=== PATIENT | male | born 1955 | race Caucasian/White ===

== ENCOUNTER 2019-09-08 09:05 | Emergency (ER) | payer MEDICARE, SELFPAY ==
--- NOTE | 2019-09-08 09:17 | ED_ITS ---
HPI - General Adult General Stated complaint: blood pressure high Time Seen by Provider: 09/08/19 09:17 Source: patient Mode of arrival: ambulatory Limitations: no limitations Related Data Allergies Allergy/AdvReac Type Severity Reaction Status Date / Time codeine Allergy Unknown Verified 12/29/16 10:16 Review of Systems Review of Systems: Narrative: CONSTITUTIONAL: Denies fever, chills, or sweats. EYES: Denies visual changes, redness, or discharge. ENT: Denies rhinorrhea, congestion, sore throat, or otalgia. CARDIOVASCULAR: Denies chest pain, palpitations, or edema. RESPIRATORY: Denies cough or dyspnea. GASTROINTESTINAL: Denies abdominal pain, nausea, vomiting, or diarrhea. GENITOURINARY: Denies dysuria or hematuria. SKIN: Denies rash or itching. MUSCULOSKELETAL: Denies back pain, joint pain, or myalgia. NEUROLOGIC: Denies headache, numbness, or weakness. PSYCHIATRIC: Denies anxiety or depression. [facility] Social History Social History Alcohol intake: current Comments At the time of my signature I agree with nursing past medical history, surgical, social, and family history. There is no relevant family history pertinent to the presenting complaint. Exam Narrative: Exam Narrative: GENERAL: Well-appearing, well-nourished, and in no acute distress. HEAD: Normocephalic, atraumatic. EYES: PERRLA and EOMI. ENT: Nares clear, no rhinorrhea or epistaxis. Mucous membranes moist. NECK: Supple. No lymphadenopathy CHEST: Clear to auscultation. No respiratory distress. HEART: Regular rate and rhythm. No murmur heard. Normal peripheral pulses. ABDOMEN: Soft, nontender, nondistended, normal active bowel sounds. EXTREMITIES: Normal range of motion. No edema. SKIN: Warm, dry, no rash. NEURO: No focal deficits. Alert and oriented x3. Course Vital Signs Vital signs: Vital signs reviewed. Medical Decision Making Differential Diagnosis Differential Diagnosis: Differential diagnosis: Critical Care Time Critical Care Time Critical Care Time: No
[2019-09-08 09:23] VITALS: BP 175/84; PULSE 79; RESP 16; TEMP 37.2; O2SAT 99
== END 2019-09-08 09:30 | disposition left against medical advice (07) ==
PROVIDERS: Emergency Provider Internal Medicine Hematology & Oncology
DX: Z53.21 Procedure and treatment not carried out due to patient leaving prior to being seen by health care provider (principal)
CPT/HCPCS: 99199

== ENCOUNTER → 2021-03-11 03:18 | Outpatient (CLI) | payer MEDICARE, SELFPAY ==
[2021-03-12 22:39] LABS: SARS-CoV-2 RNA PCR Negative
== END ==
PROVIDERS: PCP Physician Assistant; Visit Provider Surgery
DX: Z01.812 Encounter for preprocedural laboratory examination (principal); Z20.822 Contact with and (suspected) exposure to COVID-19
CPT/HCPCS: C9803; U0003; U0005

== ENCOUNTER 2021-03-11 08:41 | Outpatient (CLI) | payer MEDICARE, SELFPAY ==
--- NOTE | 2021-03-11 08:55 | ECG_ITS ---
Measurements Intervals [place] Rate: 67 P: 56 WA: 163 QRS: 48 QRSD: 92 T: 51 QT: 401 QTc: 425 Interpretive Statements SINUS RHYTHM DELAYED PRECORDIAL R/S TRANSITION BASELINE ARTIFACT- I, II, III, AVR, AVL, AVF, V1, V4-V6 BORDERLINE ECG Electronically Signed On 03-11-2021 9:24:48 BURLAPPER by Abisai Jeong D.O.
[2021-03-11 09:51] LABS: Anion Gap 11 mmol/L (8-16); Blood Urea Nitrogen 13 mg/dL (9-20); Calcium 9.7 mg/dL (8.4-10.2); Carbon Dioxide 24 mmol/L (22-30); Chloride 102 mmol/L (98-107); Estimated Glomerular Filt Rate > 60; Glucose 112 mg/dL (65-110); Potassium 3.8 mmol/L (3.4-5.0); Sodium 137 mmol/L (137-145)
== END 2021-03-11 08:42 | disposition home or self-care (01) ==
LOC: ANHSURGERY 08:44
PROVIDERS: Anesthesiology; PCP Physician Assistant; Visit Provider Surgery
DX: Z01.818 Encounter for other preprocedural examination (principal); I10 Essential (primary) hypertension
CPT/HCPCS: 36415; 80048; 93005

== ENCOUNTER 2021-03-14 01:32 | Day surgery (SDC) | payer MEDICARE, SELFPAY ==
[2021-03-10 13:56] VITALS: BMI 29.7
--- NOTE | 2021-03-10 14:02 | PC.NURSE ---
Report to the Outpatient Waiting Room, entrance under the green pavilion located off [facility], at time __0900____ on date __03/14/21 . OR Time: _1100 . - You and your visitor will be asked a series of questions to screen for COVID 19 for your protection. - A mask is required within the hospital. - Only one visitor is allowed at this time. Patient visitors will be guided where to wait when not with patient. Preoperative COVID Testing Requirements: No COVID Test needed if: (proof is required; if not received patient will have Rapid Test prior to entry) - Patient has received COVID Vaccine at least 14 days prior to procedure date or COVID TESTING 03/11/21 AT 0905 - Patient has positive COVID test result within last 90 days of surgery date. COVID Test needed if above criteria is not met If not COVID vaccinated a COVID test must be conducted within 72 hours of surgery and patient is asked to isolate self from time of testing until procedure. You will go to the [employer] [facility] Testing Site for your COVID testing. The [employer] [facility] Testing site is located at the corner of [address] from [facility]. You will only be called if COVID results are positive and your surgeon may reschedule your elective surgery date. Patients may have clear liquids (water, carbonated beverages, clear teas, apple juice) until 3 hours prior to surgery with a maximum of 20 ounces. - No food from midnight until time of surgery - Infants may have breast milk until 4 hours before surgery, infant formula 6 hours prior to surgery. - Children will be allowed to drink immediately following surgery. If applicable, please bring a bottle or sippy cup to assist with drinking. Juice, water, soda, and popsicles are readily available. For infants on formula, please bring formula the day of surgery. Pacifiers are allowed. Take the following medications with a SIP of water the morning of surgery: _NONE Medications to discontinue per physician ALL VITAMINS 3 DAYS PRE OP Date to take last dose__03/10/21 Please no make-up, nail yi, hairspray, perfume, deodorant, or body powder the day of surgery. No jewelry (including any body piercings) or valuables the day of surgery, leave them at home. Please take a shower or bath the night before, or the morning of, surgery with an antibacterial soap. Wear comfortable, loose fitting clothing. Children are encouraged to wear pajamas. - Jewelry must be removed prior to entering the operating room. Rings and piercings that are not removed may be cut off. - The hospital will not accept responsibility for valuables. - Please leave all valuables, including medications, at home the day of surgery. HIBICLENS SHOWER MORNING OF SURGERY If you are going home after surgery, a licensed fuel truck driver must drive you home. - NO public transportation without another adult. - We recommend that an adult stay with you for 24 hours following discharge. - We also recommend that you do not drive, make important decision, drink alcoholic beverages, or take any drugs that were not prescribed by your health care provider for at least 24 hours after your discharge time. For Pediatric surgeries, we recommend two adults accompany the child home (only one inside the building at this time). Follow any additional instructions given to you from your surgeon. Telephone instructions given to _PATIENT and asked if any additional questions and then verbalized understanding. Patient advised to call surgeon office or pre surgery nurse liaison [phone] if any additional questions.
[2021-03-14] VITALS (10 sets, daily range): BP systolic 124–173; BP diastolic 66–92; PULSE 62–90; RESP 14–20; TEMP 36.2–36.4; O2SAT 94–100
--- NOTE | 2021-03-14 07:26 | WPDHPUPDATE1 ---
History and Physical Update Update Date/Time: 03/14/21 07:26 History and Physical has been reviewed, including an updated exam of the patient. There are NO changes in the patient's condition. Risks, benefits, and alternatives have been discussed and questions answered. Patient agrees to proceed with procedure.
[2021-03-14] MEDS: ACETAMINOPHEN 500 MG TABLET 1000 MG PO (08:15)
[2021-03-14] MEDS: LACTATED RINGERS 1,000 ML 30 ML IV CONT ×2 (08:15→09:45)
[2021-03-14] MEDS: KETOROLAC 15 MG/ML VIAL (*BKC) IV PUSH (08:15)
--- NOTE | 2021-03-14 08:28 | WPDANESEPPF ---
Anes - Initial Pre Proc Eval Procedure: Operation Date: 03/14/21 10:00 Proposed Procedures p Open Incarcerated Umbilical Hernia Repair with Mesh - Stacy Borges MD Date/Time: 03/14/21 08:28 Surgeon: Stacy Borges MD Pre Op Diagnosis: incarcerated umbilical hernia Patient Data Age: 65 Gender: M Height: 1.7 m Weight: 86.2 kg Allergies Allergy/AdvReac Type Severity Reaction Status Date / Time codeine Allergy Mild hives, Verified 03/14/21 07:43 itchy amlodipine AdvReac Mild Swelling, Verified 03/14/21 07:43 rash Home Medications Medication Instructions Recorded Confirmed Type cholecalciferol (vitamin D3) 25 25 mcg PO DAILY 10/07/19 03/14/21 History mcg (1,000 unit) capsule hydroxyzine HCl 50 mg tablet 50 mg PO BID PRN #14 tablet 02/04/21 03/14/21 Rx lisinopril 20 2 tablet PO DAILY #180 tablet 03/02/21 03/14/21 Rx mg-hydrochlorothiazide 12.5 mg tablet mupirocin 2 % topical ointment 1 applic TOPICAL TID #22 g 03/02/21 03/14/21 Rx aspirin [Adult Low Dose Aspirin] 81 mg PO PRN PRN 03/10/21 03/14/21 History Patient hx anesthesia problems: none Family hx anesthesia problems: none Results Review: All pre-operative results and documents have been reviewed as part of the pre-operative evaluation. [facility] Past Medical History Medical History Arthritis Hyperlipidemia Hypertension Surgical History Surgical History H/O repair of right rotator cuff Family History Family History Father Cerebrovascular accident Mother Acute myocardial infarction Other Hypertension Social History Social History Smoking packs per day: 1 Smoking cigarettes per day: 20.0 Years smoked: 10 Smoking pack-years: 10.00 Smoking status: Former smoker Tobacco type: cigarettes Second hand tobacco smoke exposure: No Smoking end date: 03/05/98 Alcohol intake: current Drinks per week: 9 Substance use: never Living arrangements: with family Spiritual care concerns: No Anes - Eval Final PreProcedure Day of Procedure 03/14/21 08:28 Patient weight: overweight Heart: regular rate and rhythm Lungs: clear to auscultation Airway: Mallampati scale class III and special considerations poor dentition Neurological: alert and oriented Last oral intake: >/= 8 hours ASA classification: III Emergent: no Anesthetic plan: proceed Anesthesia type and monitoring: general ETT and standard monitoring Results Review: All pre-operative results and documents have been reviewed as part of the pre-operative evaluation. Informed Consent: The patient's anesthetic plan and its attendant risks and benefits were discussed with the patient/family/POA. Questions were solicited and answers provided to the satisfaction of the patient/family/POA.
[2021-03-14] MEDS: ceFAZolin 2 GM/D5W 50 ML 2 GM/50 ML BAG IVPB (08:55)
[2021-03-14] MEDS: BUPIVACAINE/EPINEPHRINE 0.5% 10 ML VIAL 30 ML INFILTRATE (08:55)
--- NOTE | 2021-03-14 09:56 | W.PM.PROC2 ---
Procedure Note - Detailed Date of Procedure 03/14/21 Pre-op Diagnosis incarcerated umbilical hernia Post-op Diagnosis same Procedure Performed repair of incarcerated umbilical hernia with mesh Surgeon Stacy Borges MD Anesthesia general Indications 65 y/o M c incarcerated umbilical hernia Findings incarcerated [facility] c preperitoneal fat and omentum Description of Procedure The patient was taken to the operating room placed in the supine position. After adequate induction of general anesthesia, the patient was prepped and draped in the normal sterile fashion. A time-out was then done to verify the patient's identity, as well as the procedure being performed. I began by localizing the area around the umbilicus. I then made a curvilinear incision in the infraumbilical fold. This was taken down to level fascia. I then was able to bluntly dissect around the umbilicus. I then carefully dissected the umbilicus off the underlying fascia. I then noted a small defect with incarcerated omentum and preperitoneal fat. I was able to mobilize the incarcerated tissue and reduce it back into the abdominal cavity. This left an approximately 2 cm defect. I then placed a 4.3 cm round piece of ventralex mesh in the underlay position. This was noted to have good, wide local coverage of the defect. I then closed this defect primarily with interrupted 0 Ethibond suture over the underlay mesh repair. I then reapproximated the umbilicus to the fascia with a 3 0 Vicryl U-stitch. The subcutaneous tissue was then closed with 3 0 Vicryl suture. The skin was closed with 4 0 Monocryl subcuticular suture. Dermabond was then placed on the wound. The patient tolerated the procedure well was extubated in the operating room postop. He will be transferred to the recovery room in stable condition. Implants 4.3 cm ventralex mesh in underlay position Estimated Blood Loss 5 Drains No Packing No Pathology none sent Complications No immediate complications Condition stable Disposition PACU
== END 2021-03-14 12:05 | disposition home or self-care (01) ==
PROVIDERS: PCP Physician Assistant; Visit Provider Surgery
PROC: (CPT 49587; principal; 2021-03-14 10:00)
DX: K42.0 Umbilical hernia with obstruction, without gangrene (principal); R10.9 Unspecified abdominal pain; M19.90 Unspecified osteoarthritis, unspecified site; I10 Essential (primary) hypertension; E78.5 Hyperlipidemia, unspecified; Z79.82 Long term (current) use of aspirin; Z87.891 Personal history of nicotine dependence
CPT/HCPCS: 49587; 36415; 80048; 93005; A9270; C9803; J0690; J1885; J1940; J2250; J2270; J2405; J2704; J7120; U0003; U0005

== ENCOUNTER 2021-06-27 13:41 | Outpatient (CLI) | payer MEDICARE, SELFPAY ==
--- NOTE | ~2021-06-27 | US_ITS ---
EXAMINATION: US art doppler w press LE BI DATE: 06/27/2021 14:40 INDICATION: Discoloration at the bilateral shins. TECHNIQUE: Segmental pressures and plethysmographic and Doppler waveforms of the brachial and lower e xtremity arteries were obtained. COMPARISON: None. FINDINGS: Right and left brachial artery pressures of 143 mm Hg and 147 mm Hg, respectively, are concordant (no rmal difference <= 30 mmHg). The right and left high-thigh pressure indices are 1.30 and 1.14, respec tively (normal > 1.2). The right ankle-brachial index (SHELBIE) is 0.98 (normal >= 0.9-1). The right great toe-brachial index (T BI) is 0.63 (normal >= 0.6-0.8). The right lower extremity segmental pressure gradients are increased between the right [id number] popliteal artery and both the right posterior tibial and more promi nently with respect to the right dorsalis pedis artery (normal gradients <= 20-30 mmHg between adjace nt levels on the same leg or the same levels on the two legs). Arterial waveforms are biphasic with b risk systolic upstrokes throughout the arteries of the right lower limb. The left SHELBIE is 1.12. The left TBI is 0.59. The left lower extremity segmental pressure gradients are increased between the left dorsalis pedis artery and the left eqyqx-flp-[id number] popliteal artery. Arter ial waveforms are biphasic with brisk systolic upstrokes throughout the arteries of the left lower li mb. IMPRESSION: 1. 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 Borderline right TBI Reviewed, dictated and finalized at location B.
== END 2021-06-27 13:42 | disposition home or self-care (01) ==
PROVIDERS: PCP Physician Assistant; Visit Provider Physician Assistant
DX: R21 Rash and other nonspecific skin eruption (principal); I73.9 Peripheral vascular disease, unspecified
CPT/HCPCS: 93923

== ENCOUNTER → 2022-03-30 07:49 | Outpatient (CLI) | payer MEDICARE, SELFPAY ==
--- NOTE | ~2022-03-30 | MR_ITS ---
MRI of the right knee Clinical history: Injury Technique: Coronal proton density and proton density-weighted images, sagittal proton-density and T2 fat-sat images, and axial proton-density fat-saturated images were acquired. Findings: Anterior and posterior cruciate ligaments are intact. Medial collateral ligament and the la teral collateral ligament complex are intact. Popliteus tendon is intact. Subtle horizontal tear of the posterior horn the medial meniscus present. Lateral meniscus is intact. Articular cartilage in the medial lateral compartments, and along the femoral trochlea is preserved. 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 Extensor mechanism is intact. No joint effusion or Edward's cyst. Impression: Subtle horizontal tear of the posterior horn of the medial meniscus. 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 Reviewed, dictated and finalized at [facility]. LESOFT ANALYST Impression: Subtle horizontal tear of the posterior horn of the medial meniscus. 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
== END ==
PROVIDERS: PCP Physician Assistant; Visit Provider Orthopaedic Surgery
DX: S83.241A Other tear of medial meniscus, current injury, right knee, initial encounter (principal); M22.41 Chondromalacia patellae, right knee; X58.XXXA Exposure to other specified factors, initial encounter
CPT/HCPCS: 73721

== ENCOUNTER 2022-04-12 14:12 | Outpatient (CLI) | payer MEDICARE, SELFPAY ==
--- NOTE | ~2022-04-12 | XR_ITS ---
Clinical Indication: Cough PA and lateral views of the chest: Comparison: 10/27/2008 Findings: The lungs are clear, without evidence of focal consolidation or pleural effusion. Cardiome diastinal silhouette is within normal limits. Bones and soft tissues are unremarkable. Impression: Normal chest. Reviewed, dictated and finalized at [facility]. URE PAINTER Impression: Normal chest.
== END 2022-04-12 14:13 | disposition home or self-care (01) ==
PROVIDERS: PCP Physician Assistant; Visit Provider Physician Assistant
DX: R05.9 Cough, unspecified (principal)
CPT/HCPCS: 71046

== ENCOUNTER 2022-04-28 08:13 | Outpatient (CLI) | payer MEDICARE, SELFPAY ==
[2022-04-28 09:01] LABS: Anion Gap 5 mmol/L (8-16); Blood Urea Nitrogen 12 mg/dL (9-20); Calcium 9.4 mg/dL (8.4-10.2); Carbon Dioxide 30 mmol/L (22-30); Chloride 99 mmol/L (98-107); Estimated Glomerular Filt Rate > 60; Glucose 120 mg/dL (65-110); Potassium 3.8 mmol/L (3.4-5.0); Sodium 134 mmol/L (137-145)
== END 2022-04-28 08:14 | disposition home or self-care (01) ==
LOC: ANHSURGERY 08:17
PROVIDERS: Anesthesiology; PCP Physician Assistant; Visit Provider Orthopaedic Surgery
DX: Z51.81 Encounter for therapeutic drug level monitoring (principal); Z01.818 Encounter for other preprocedural examination
CPT/HCPCS: 36415; 80048

== ENCOUNTER 2022-05-05 01:24 | Day surgery (SDC) | payer MEDICARE, SELFPAY ==
[2022-04-25 14:08] VITALS: BMI 31.1
--- NOTE | 2022-04-25 14:48 | PC.NURSE ---
Report to the Outpatient Waiting Room, entrance under the green pavilion located off [facility], at time __8:30AM on date _05/05/22 . Planned Procedure Time: __10:30AM . Time changes happen often and if your time is changed the preop area will call you the afternoon before. - You and your visitor will be asked to self-screen and do not enter if you have any COVID symptoms. - Only one visitor is requested with a max of two and NO children visitors are allowed at this time. - The patient visitor may be requested to leave or wait in car when not with patient due to distancing restrictions. - A mask is optional within the hospital at this time. Patients may have clear liquids (water, carbonated beverages, clear teas, apple juice) until 3 hours prior to surgery with a maximum of 20 ounces. - No food from midnight until time of surgery Take the following medications with a SIP of water the morning of surgery: __ADVAIR DISKUS, ALBUTEROL INHALER NEEDED DO NOT STOP ANY OF YOUR OTHER PRESCRIPTION MEDICATIONS PRIOR TO SURGERY ?EXCEPT THE FOLLOWING Medications to discontinue per physician ___HOLD ASPIRIN PER DR SMITH(PT TO CALL OFFICE TO VERIFY) Please no make-up, nail sami, hairspray, perfume, deodorant, or body powder the day of surgery. No jewelry (including any body piercings) or valuables the day of surgery, leave them at home. Please take a shower or bath the night before, or the morning of, surgery with an antibacterial soap. Wear comfortable, loose fitting clothing. Children are encouraged to wear pajamas. - Jewelry must be removed prior to entering the operating room. Rings and piercings that are not removed may be cut off. - The hospital will not accept responsibility for valuables. - Please leave all valuables, including medications, at home the day of surgery. If you are going home after surgery, a licensed crew car driver must drive you home. - NO public transportation without another adult if you receive anesthesia. - We recommend that an adult stay with you for 24 hours following discharge. - We also recommend that you do not drive, make important decision, drink alcoholic beverages, or take any drugs that were not prescribed by your health care provider for at least 24 hours after your discharge time. Follow any additional instructions given to you from your surgeon. If you or anyone in your household have experienced Covid symptoms in the past week, please notify your surgeon or the nurse liaison at the phone number below for possible testing. Telephone instructions given to __PATIENT and asked if any additional questions and then verbalized understanding. Patient advised to call surgeon office or pre surgery nurse liaison [phone] if any additional questions.
[2022-05-05] VITALS (8 sets, daily range): BP systolic 130–162; BP diastolic 87–100; PULSE 65–72; RESP 14–18; TEMP 36.1–36.3; O2SAT 95–100
--- NOTE | 2022-05-05 07:19 | WPDHPUPDATE1 ---
History and Physical Update Update Date/Time: 05/05/22 07:19 History and Physical has been reviewed, including an updated exam of the patient. There are NO changes in the patient's condition. Risks, benefits, and alternatives have been discussed and questions answered. Patient agrees to proceed with procedure.
[2022-05-05] MEDS: CELECOXIB 200 MG CAPSULE PO (08:56)
[2022-05-05] MEDS: ACETAMINOPHEN 500 MG TABLET 1000 MG PO (08:56)
[2022-05-05] MEDS: LACTATED RINGERS 1,000 ML 30 ML IV CONT ×2 (09:30→11:42)
--- NOTE | 2022-05-05 10:01 | W.PM.PROC2 ---
Procedure Note - Detailed Date of Procedure 05/05/22 Pre-op Diagnosis Rt Knee Medial Meniscus Tear, RETAINED SUTURE RIGHT SHOULDER Post-op Diagnosis Same Procedure Performed RIGHT KNEE SCOPE, REMOVAL OF FOREIGN BODY RIGHT SHOULDER Surgeon Kai Patel MD Anesthesia General Description of Procedure PATIENT WAS TAKEN TO THE OR. RIGHT LEG WAS PREPPED AND DRAPED STERILE. TROCARS WERE PLACED IN THE USUAL FASHION. CAMERA WAS INTRODUCED. THERE WAS CHONDROMALACIA TO THE PATELLA FEMORAL JOINT. THERE WAS A LOT OF SYNOVITIS IN ALL COMPARTMENTS. THE MEDIAL COMPARTMENT SHOWED CHONDROMALACIA TO THE MEDIAL FEMORAL CONDYLE. A SHAVER WAS USED TO PREFORM A CHONDROPLASTY. THERE WAS A COMPLEX MEDIAL MENISCUS TEAR. THE TEAR WAS RESECTED WITH A BITER AND A SHAVER DOWN TO A SMOOTH BASE. ABOUT 30% OF THE MENISCUS TEAR WAS REMOVED. THE ACL WAS INTACT. THE LATERAL MENISCUS WAS NOT TORN. THE LATERAL COMPARTMENT HAD GRADE 2 CHONDROMALACIA AT THE LATERAL PLATEAU. CHONDROPLASTY WAS PREFORMED. A SYNOVECTOMY WAS PREFORMED WELL. THE PATELLO FEMORAL JOINT UNDERWENT CHONDROPLASTY. THERE WAS GRADE 2 CHONDROMALACIA IN MOST OF THE TROCHLEA AND PART OF THE PATELLA. SYNOVECTOMY WAS PREFORMED IN THE SUPERIOR MEDIAL COMPARTMENT. THE WOUNDS WERE APPROXIMATED WITH 4.0 NYLON. STERILE DRESSING WAS APPLIED. NEXT AFTER RE GOWNING AND GLOVING, THE RIGHT SHOULDER WAS PREPPED AND DRAPED AND THE RETAINED SUTURE WAS PALPATED AND AN INCISION WAS MADE DIRECTLY OVER THE SUTURE OVER THE OLD SCAR. DISSECTION CONTINUED UNTIL THE SUTURE WAS IDENTIFIED. IT WAS REMOVED IN ITS ENTIRETY. THE WOUND WAS WASHED AND APPROXIMATED WITH 4-0 NYLON SUTURE. PATIENT WAS EXTUBATED. Estimated Blood Loss 5 Complications No immediate complications Condition Stable Disposition PACU
--- NOTE | 2022-05-05 10:11 | WPDANESEPPF ---
Anes - Initial Pre Proc Eval Procedure: Operation Date: 05/05/22 10:30 Proposed Procedures p Right Knee Arthroscopy, - Kai Patel MD s Removal Foreign Body Right Shoulder - Kai Patel MD Date/Time: 05/05/22 10:11 Surgeon: Kai Patel MD Pre Op Diagnosis: Rt Knee Medial Meniscus Tear, (2 cont) Patient Data Age: 66 Gender: M Height: 1.7 m Weight: 90.3 kg Last Vital Signs Temp 36.3 C L 05/05/22 09:29 Pulse 72 05/05/22 09:29 Resp 16 05/05/22 09:29 BP 158/93 H 05/05/22 09:29 Pulse Ox 99 05/05/22 09:29 O2 Del Method Room Air 05/05/22 09:29 Allergies Allergy/AdvReac Type Severity Reaction Status Date / Time amlodipine Allergy Mild Swelling, Verified 05/05/22 08:40 rash codeine Allergy Mild hives, Verified 05/05/22 08:40 itchy Home Medications Medication Instructions Recorded Confirmed Type aspirin 81 mg tablet 81 mg PO DAILY 03/10/21 05/05/22 History acetaminophen 500 mg tablet 500 mg PO Q6H PRN Pain 03/15/21 05/05/22 History (Tylenol Extra Strength) albuterol sulfate 90 mcg/actuation 2 puff inhalation Q4-6H PRN 10/11/21 05/04/22 Rx aerosol inhaler shortness of breath or wheezing #25.5 grams tamsulosin 0.4 mg capsule 0.4 mg PO DAILY #90 caps 03/14/22 05/05/22 Rx fluticasone 100 mcg-salmeterol 50 1 inh inhalation Q12H #60 ea 04/12/22 05/05/22 Rx mcg/dose blistr powdr for inhalation (Advair Diskus) betamethasone dipropionate 0.05 % 1 applic topical BID 04/25/22 05/04/22 History topical ointment docusate sodium 100 mg capsule 100 mg PO DAILY PRN Constipation 04/25/22 05/05/22 History lisinopril 20 2 tablet PO QAM 04/25/22 05/05/22 History mg-hydrochlorothiazide 12.5 mg tablet pimecrolimus 1 % topical cream 1 applic topical BID 04/25/22 05/04/22 History potassium 99 mg tablet 99 mg PO EVERY OTHER DAY 04/25/22 05/05/22 History chlorhexidine gluconate 4 % 1 applic topical ONCE #237 mL 04/27/22 05/05/22 Rx topical liquid (Hibiclens) hydrocodone 5 mg-acetaminophen 325 1 tablet PO Q12H PRN pain #20 tabs 05/05/22 Rx mg tablet Patient hx anesthesia problems: none Family hx anesthesia problems: none Results Review: All pre-operative results and documents have been reviewed as part of the pre-operative evaluation. [facility] Past Medical History Medical History Arthritis Hyperlipidemia Hypertension Right knee injury Surgical History Surgical History H/O repair of right rotator cuff History of umbilical hernia repair open incarcerated umbilical hernia repair w/ mesh 03/14/21 Family History Family History Father Cerebrovascular accident Mother Acute myocardial infarction Other Hypertension Social History Social History Smoking packs per day: 1 Smoking cigarettes per day: 20.0 Years smoked: 20 Smoking pack-years: 20.00 Smoking status: Former smoker Tobacco type: cigarettes Second hand tobacco smoke exposure: No Smoking end date: 09/03/99 Alcohol intake: current Drinks per week: 10 Substance use: never Lack of Transportation: No Lack of Food: Never True Current Housing: I Have Housing Concerned About Future Housing: No Difficulty Paying Gas/Electric Bills: No Difficulty Paying for Meds: No Currently Unemployed: No Education: High School Diploma/GED Difficulty w/ Childcare or Family Care: No Living arrangements: with family Additional living arrangements comments: Spiritual care concerns: No Anes - Eval Final PreProcedure Day of Procedure 05/05/22 10:11 Patient weight: obese Heart: regular rate and rhythm Lungs: decreased breath sounds Airway: Mallampati scale class II Neurological: alert and oriented
[2022-05-05] MEDS: ceFAZolin 2 GM/D5W 50 ML 2 GM/50 ML BAG IVPB (10:19)
[2022-05-05] MEDS: BUPivacaine HCL 0.5% PF 30 ML VIAL INFILTRATE (11:12)
[2022-05-05] MEDS: oxyCODONE HCL (*CRX) 5 MG TAB IR PO (13:11)
== END 2022-05-05 14:03 | disposition home or self-care (01) ==
PROVIDERS: PCP Physician Assistant; Visit Provider Orthopaedic Surgery
PROC: (CPT 29870; principal; 2022-05-05 10:30)
PROC: (CPT 29881; 2022-05-05 10:30)
DX: S83.231A Complex tear of medial meniscus, current injury, right knee, initial encounter (principal); X50.0XXA Overexertion from strenuous movement or load, initial encounter; M79.5 Residual foreign body in soft tissue; I10 Essential (primary) hypertension; E78.5 Hyperlipidemia, unspecified; Z87.891 Personal history of nicotine dependence; E66.9 Obesity, unspecified; Z68.31 Body mass index [BMI] 31.0-31.9, adult; Z79.82 Long term (current) use of aspirin; Z79.51 Long term (current) use of inhaled steroids
CPT/HCPCS: 29881; 23333; 36415; 80048; A9270; J0690; J1100; J2250; J2370; J2704; J3010; J7120

== ENCOUNTER 2023-11-23 08:14 | Emergency (ER) | payer MEDICARE, SELFPAY ==
--- NOTE | 2023-11-23 08:19 | ED.MALEGU ---
HPI - Male Genitourinary General Chief complaint: Urogenital-Male Stated complaint: UTI Time Seen by Provider: 11/23/23 08:19 Source: patient Mode of arrival: ambulatory Limitations: no limitations History of Present Illness HPI Narrative: 68 yo M presents with c/o pain to L side of low back. Was sitting on bench playing guitar, leaned back and didn't realize no back to the bench and fell backwards. Pt states was not a hard fall. kind of rolled back . Denies hitting head. Pt wants urine checked. had low back pain in the past that was UTI . no other urinary symptoms. all systems reviewed and negative except as noted above. Related Data Home Medications Medication Instructions Recorded Confirmed aspirin 81 mg tablet 81 mg PO DAILY 03/10/21 11/23/23 acetaminophen 500 mg tablet 500 mg PO Q6H PRN Pain 03/15/21 11/23/23 (Tylenol Extra Strength) betamethasone dipropionate 0.05 % 1 applic topical BID 04/25/22 11/23/23 topical ointment docusate sodium 100 mg capsule 100 mg PO DAILY PRN Constipation 04/25/22 11/23/23 pimecrolimus 1 % topical cream 1 applic topical BID 04/25/22 11/23/23 potassium 99 mg tablet 99 mg PO EVERY OTHER DAY 04/25/22 11/23/23 Allergies Allergy/AdvReac Type Severity Reaction Status Date / Time amlodipine Allergy Mild Swelling, Verified 11/23/23 08:43 rash codeine Allergy Mild hives, Verified 11/23/23 08:43 itchy Review of Systems Review of Systems: CONSTITUTIONAL: Denies fever, chills, or sweats. EYES: Denies visual changes, redness, or discharge. ENT: Denies rhinorrhea, congestion, sore throat, or otalgia. CARDIOVASCULAR: Denies chest pain, palpitations, or edema. RESPIRATORY: Denies cough or dyspnea. GASTROINTESTINAL: Denies abdominal pain, nausea, vomiting, or diarrhea. GENITOURINARY: Denies dysuria or hematuria. SKIN: Denies rash or itching. MUSCULOSKELETAL: Reports left lower back pain. NEUROLOGIC: Denies headache, numbness, or weakness. PSYCHIATRIC: Denies anxiety or depression. All other systems reviewed are negative, except as documented in HPI. [facility] Past Medical History Medical History Arthritis Hyperlipidemia Hypertension Right knee injury Surgical History Surgical History H/O repair of right rotator cuff History of umbilical hernia repair open incarcerated umbilical hernia repair w/ mesh 03/14/21 Family History Family History Father Cerebrovascular accident Mother Acute myocardial infarction Other Hypertension Social History Social History Smoking packs per day: 1 Smoking cigarettes per day: 20.0 Years smoked: 20 Smoking pack-years: 20.00 Smoking status: Former smoker Tobacco type: cigarettes Second hand tobacco smoke exposure: No Smoking end date: 09/03/99 Alcohol intake: current Drinks per week: 10 Substance use: never Lack of Transportation: No Lack of Food: Never True Current Housing: I Have Housing Concerned About Future Housing: No Difficulty Paying Gas/Electric Bills: No Difficulty Paying for Meds: No Currently Unemployed: No Education: High School Diploma/GED Difficulty w/ Childcare or Family Care: No Living arrangements: with family Additional living arrangements comments: Gender identity (if verbalized by the patient): Male Sexual Orientation (if Verbalized by the Patient): Straight or Heterosexual Spiritual care concerns: No Comments At time of signature, agree with nursing past medical, surgical, social and family history. There is no relevant family history pertinent to the presenting complaint. Exam Narrative: GENERAL: This is a well-nourished, well-developed patient, in no apparent distress. HEAD: normocephalic, atrauma
[2023-11-23 08:25] VITALS: BP 124/98; PULSE 81; RESP 14; TEMP 36.5; O2SAT 99
[2023-11-23 08:41] LABS: EDUAAPPEAR Clear; EDUABILI 1+ (Negative); EDUABLOOD Negative (Negative); EDUACOLOR1 Amber; EDUAGLUCOSE Negative (Negative); EDUAKETONE 1+ (Negative); EDUALEUKO Negative (Negative); EDUANITRATE Negative (Negative); EDUAPH 5.5; EDUAPROTEIN Trace (Negative); EDUAUROBILI 0.2
== END 2023-11-23 08:47 | disposition home or self-care (01) ==
PROVIDERS: Emergency Provider Nurse Practitioner Family; PCP Physician Assistant
DX: S39.012A Strain of muscle, fascia and tendon of lower back, initial encounter (principal); W17.89XA Other fall from one level to another, initial encounter; M19.90 Unspecified osteoarthritis, unspecified site; E78.5 Hyperlipidemia, unspecified; I10 Essential (primary) hypertension; Z87.891 Personal history of nicotine dependence
CPT/HCPCS: 81003; 99212; G0463

== ENCOUNTER 2024-01-09 08:57 | Outpatient (CLI) | payer MEDICARE, SELFPAY ==
--- NOTE | ~2024-01-09 | US_ITS ---
EXAMINATION: US arterial ankle brachial ind DATE: 01/09/2024 10:15 INDICATION: Claudication. Other specified symptoms and signs involving the circulatory system. TECHNIQUE: Segmental pressures and plethysmographic and Doppler waveforms of the brachial and lower e xtremity arteries were obtained. COMPARISON: Arterial Doppler and segmental pressures 06/27/2021 FINDINGS: Right and left brachial artery pressures of 142 mm Hg and 147 mm Hg, respectively, are concordant (no rmal difference <= 30 mmHg). The right ankle-brachial index (SHELBIE) is 1.05 (normal >= 0.9-1.0). The right great toe-brachial index (TBI) is 0.78 (normal >= 0.65). Arterial Doppler waveforms are biphasic at the ankle. The left SHELBIE is 1.01. The left TBI is 0.69. Arterial Doppler waveforms are biphasic at the ankle. IMPRESSION: 1. No significant arterial occlusive disease. Reviewed, dictated and finalized at location A. NT SERVER DEVELOPER
== END 2024-01-09 08:58 | disposition home or self-care (01) ==
PROVIDERS: PCP Nurse Practitioner; Visit Provider Nurse Practitioner
DX: R09.89 Other specified symptoms and signs involving the circulatory and respiratory systems (principal); M79.671 Pain in right foot; M79.672 Pain in left foot
CPT/HCPCS: 93922

== ENCOUNTER 2024-05-08 09:55 | Outpatient (CLI) | payer MEDICARE, SELFPAY ==
--- NOTE | ~2024-05-08 | CT_ITS ---
EXAMINATION: CT chest abdomen pelvis w con DATE: 05/08/2024 10:29 INDICATION: Abnormal weight loss TECHNIQUE: Computed tomography (CT) of the chest, abdomen, and pelvis was performed with 100 mL Omnip aque-350 intravenous contrast. Automated exposure control and iterative reconstruction technique were employed. The dose-length product was 398.93 mGy-cm. COMPARISON: None FINDINGS: CHEST CT: Calcified right lower lobe nodule consistent with old granulomatous disease. There is a 3 mm likely p asif fissural lymph node along the right major fissure. No other suspicious pulmonary nodules, pneumon ia, pulmonary edema or pleural effusion. Heart size normal. Atherosclerotic coronary artery calcifica tion. No pericardial effusion. Thoracic aorta is normal in caliber with no dissection. No pathologica lly enlarged thoracic lymphadenopathy. Moderate thoracic spondylosis with chronic mild anterior wedgi ng of a few mid thoracic vertebral bodies. ABDOMEN/PELVIS CT: Liver, gallbladder, spleen, pancreas, bilateral adrenal glands and right kidney are normal. 1.6 cm le ft renal cyst. Bowels including the appendix are normal. There is diffuse wall thickening of the blad khai to be some particulate decompressed state although could also be due to chronic outlet obstructio n from the enlarged prostate which measures 5.5 x 4.4 cm. Moderate-sized bilateral fat-containing ing uinal hernias. No free intraperitoneal gas or fluid. No pathologically enlarged abdominal or pelvic l ymphadenopathy. Very small fat-containing umbilical hernia with suggestion of underlying hernia repai r. Severe disc height loss at L5-S1. Otherwise mild lumbar spondylosis. IMPRESSION: 1. Diffuse wall thickening of the bladder which could be due to chronic obstruction from the enlarged prostate. 2. No other lesion suspicious for primary malignancy or metastatic disease in the chest, abdomen or p elizabeth. Reviewed, dictated and finalized at location L. SMISSION MAINTENANCE SUPERVISOR IMPRESSION: 1. Diffuse wall thickening of the bladder which could be due to chronic obstruc tion from the enlarged prostate. 2. No other lesion suspicious for primary malignancy or metastatic disease in t he chest, abdomen or pelvis.
[2024-05-08 10:32] LABS: Estimated Glomerular Filt Rate > 60
--- OUTSIDE RECORDS SUMMARY | 2024-05-08 11:11 | XMS_ITS | Clinical Summary ---
Author Organization [facility] Address [address] [place] [address] Care Team Providers Care Integration Analyst Name Role Phone Juvencio Mccormick MD Unavailable [phone] Allergies Active Allergy Reactions Criticality Noted Date Comments Morphine And Codeine Rash Low 04/24/2012 Medications lisinopril 20 MG tabletIndications:H TN (hypertension) Take 2 tablets (40 mg total) by mouth daily. Patient must be seen for further refills 60 tablet 0 Active atorvastatin 10 MG tabletIndications:M ixed hyperlipidemia Take 1 tablet (10 mg total) by mouth nightly at bedtime. Patient must be seen for further refills 30 tablet 0 Active amLODIPine 5 MG tabletIndications:E ssential hypertension Take 1 tablet (5 mg total) by mouth daily. Patient must be seen for further refills 90 tablet 0 Active Active Problems Problem Noted Date Diagnosed Date Mixed hyperlipidemia 07/19/2018 Left hip pain 06/11/2017 Right shoulder pain 12/12/2016 Low vitamin D level 03/15/2016 Rosacea 08/06/2014 Erectile dysfunction of nonorganic origin 2012 Hypertension 04/24/2012 Rheumatoid arthritis ([facility]) 3 Chest pain in adult Fatigue Resolved Problems Problem Noted Date Diagnosed Date Resolved Date Screening for colon cancer 06/11/2017 0 11/14/2019 Encounter for vitamin deficiency screening 03/08/2016 07/08/2018 Encounter for prostate cancer screening 08/06/2014 07/08/2018 Encounter for preventive health examination 04/23/2012 07/08/2018 Family History Medical History Relation Comments Hypertension Father Stroke Father Relation Status Comments Father Social History Tobacco Use Types Packs/Day Years Used Date Smoking Tobacco: Former Cigarettes Smokeless Tobacco: Never Alcohol Use Standard Drinks/Week Comments Yes 0 (1 standard drink = 0.6 oz pur e alcohol) Sex and Gender Information Value Date Recorded Sex Assigned at Not on file Legal Sex Male 7:30 PM CDT Gender Identity Not on file Sexual Orientation Not on file Last Filed Vital Signs Vital Sign Reading Time Taken Comments Blood Pressure 138/70 08/06/2018 2:22 PM CDT Pulse 65 08/06/2018 2:22 PM CDT Temperature 35.8 C (96.4 F) 08/06/2018 2:22 PM CDT Respiratory Rate 16 08/06/2018 2:22 PM CDT Oxygen Saturation 100% 08/06/2018 2:22 PM CDT Inhaled Oxygen Concentration - - Weight 78.9 kg (174 lb) 08/06/2018 2:22 PM CDT Height 170.2 cm (5' 7 ) 08/06/2018 2:22 PM CDT Body Mass Index 27.25 08/06/2018 2:22 PM CDT Plan of Treatment Health Maintenance Due Date Last Done Comments Colorectal Cancer Screening Colonoscopy (10 Years) 1955 Hepatitis C 06/29/1973 DTaP, Tdap and Td Vaccines ( 1 - Tdap) 06/29/1974 Zoster Vaccines (1 of 2) 06/29/2005 Pneumococcal Vaccine: 65+ Ye ars (1 of 1 - PCV) 06/29/2020 COVID-19 Vaccine (1 - 2023-2 5 season) 2023 Influenza Adult (#1) 2023 RSV Immunization or 60+ Years (1 - 1-dose 75+ series) 06/29/2030 Meningococcal B Vaccine Aged Out No l onger eligible based on patient's age to complete this topic Meningococcal Vaccine Aged Out No tom inocencia eligible based on patient's age to complete this topic RSV Immunizations Under 20 Months Aged Out No longer eligible based on patient's age to complete this topic Care Teams Integration Analyst Relationship Specialty Start Date End Date Juvencio Mccormick MD [address] [address] Ángel Senior User Experience Architect CARDIOVASCULAR DISEASE 08/26/18
== END 2024-05-08 09:56 | disposition home or self-care (01) ==
PROVIDERS: PCP Nurse Practitioner; Visit Provider Nurse Practitioner
DX: R63.4 Abnormal weight loss (principal); Z68.24 Body mass index [BMI] 24.0-24.9, adult
CPT/HCPCS: 71260; 74177; Q9967

== ENCOUNTER 2024-05-13 12:18 | Emergency (ER) | payer MEDICARE, SELFPAY ==
[2024-05-13 12:33] VITALS: BP 118/81; PULSE 109; RESP 16; TEMP 36.6; O2SAT 98
--- NOTE | 2024-05-13 12:53 | ED.WEAKNESS ---
HPI - Weakness General Chief complaint: Weakness Stated complaint: no energy, abd pain left Time Seen by Provider: 05/13/24 12:53 Focused HPI: This is a 68 year old male that presents to the ER for abdominal pain ongoing over the last couple of years. Reports generalized weakness. Reports he has been evaluated for this without certain cause found. Reports he feels like he has gas build up. Reports weight loss. He has also had a colonoscopy without concerning findings. Reports subjective fevers. Denies vomiting, diarrhea. GENERAL: Well-appearing, well-nourished, and in no acute distress. HEAD: Normocephalic, atraumatic. CHEST: Clear to auscultation. ?No respiratory distress. HEART: Regular rate and rhythm.? NEURO: ?Alert and oriented x3. Patient screened in triage and initial orders placed.? ?Additional care and disposition to be based upon?diagnostic testing and treatment. Related Data Home Medications ?Medication ?Instructions ?Recorded ?Confirmed ?Last Taken ?Type aspirin 81 mg tablet 81 mg PO DAILY 03/10/21 04/11/24 05/02/22 History acetaminophen 500 mg tablet 500 mg PO Q6H PRN Pain 03/15/21 04/11/24 Unknown History (Tylenol Extra Strength) potassium 99 mg tablet 99 mg PO EVERY OTHER DAY 04/25/22 04/11/24 04/27/22 History Allergies Allergy/AdvReac Type Severity Reaction Status Date / Time amlodipine Allergy Mild Swelling, Verified 04/11/24 07:12 rash codeine Allergy Mild hives, Verified 04/11/24 07:12 itchy PMFSH Past Medical History Medical History (Updated 04/28/24 @ 15:30 by Lazarus Dewey APRN) BMI 24.0-24.9, adult Complete tear of right rotator cuff Aftercare following surgery of the musculoskeletal system Acute pain of right shoulder Right knee injury Hyperlipidemia Hypertension Arthritis Surgical History Surgical History History of umbilical hernia repair open incarcerated umbilical hernia repair w/ mesh 03/14/21 H/O repair of right rotator cuff Family History Family History Father Cerebrovascular accident Mother Acute myocardial infarction Other Hypertension Social History Social History (Updated 04/11/24 @ 07:38 by Ana Lilia Coffey Anirudh) Smoking packs per day: 1 Smoking cigarettes per day: 20.0 Years smoked: 20 Smoking pack-years: 20.00 Smoking status: Former smoker Tobacco type: cigarettes Second hand tobacco smoke exposure: No Smoking end date: 09/03/99 Alcohol intake: current Drinks per week: 10 Substance use: never Substance use type: does not use Do You Feel Safe in your Home?: Yes Lack of Transportation: No Lack of Food: Never True Current Housing: I Have Housing Concerned About Future Housing: No Difficulty Paying Gas/Electric Bills: No Difficulty Paying for Meds: No Currently Unemployed: No Education: High School Diploma/GED Difficulty w/ Childcare or Family Care: No Living arrangements: with family Additional living arrangements comments: Occupation/Education: unemployed 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[employer] Gender identity (if verbalized by the patient): Male Sexual Orientation (if Verbalized by the Patient): Straight or Heterosexual Spiritual care concerns: No Course Vital Signs Vital signs: Vital Signs Temperature 97.8 F 05/13/24 12:33 Pulse Rate 109 H 05/13/24 12:33 Respiratory Rate 16 05/13/24 12:33 Blood Pressure 118/81 05/13/24 12:33 Pulse Oximetry 98 05/13/24 12:33 Oxygen Delivery Room Air 05/13/24 12:33 Temperature 97.8 F 05/13/24 12:33 Pulse Rate 109 H 05/13/24 12:33 Respiratory Rate 16 05/13/24 12:33 Blood Pressure 118/81 05/13/24 12:33 Pulse Oximetry 98 05/13/24 12:33 Oxygen Delivery Room Air 05/13/24 12:33 Discharge Plan Discharge Patient Language: German Prescriptions: No Action acetaminophen [Tylenol Extra Strength] 500 mg tablet 500 mg PO Q6H PRN (Reason: Pain) tamsulosin 0.4 mg capsule 0.4 mg PO DAILY Qty: 90 3RF omeprazole 40 mg capsule,delayed release(DR/EC) 40 mg PO DAILY Qty: 90 1RF aspirin 81 mg Tablet 81 mg PO DAILY potassium 99 mg Tablet 99 mg PO EVERY OTHER DAY fluticasone propion-salmeterol [Advair Diskus] 100-50 mcg/dose blister with device 1 inh inhalation Q12H Qty: 60 5RF albuterol sulfate 90 mcg/actuation HFA aerosol inhaler 2 puff inhalation Q4-6H PRN (Reason: shortness of breath or wheezing) Qty: 25.5 2RF lisinopril-hydrochlorothiazide 20-12.5 mg tablet 2 tablet PO QAM Qty: 90 1RF Follow-up/Referrals: Lazarus Dewey APRN [Primary Care Provider] -
[2024-05-13] MEDS: ONDANSETRON INJ 4 MG/2 ML VIAL IV PUSH (13:30)
[2024-05-13 13:37] LABS: Basophils Percent Auto 0.4 % (0.2-1.2); Eosinophils Percent Auto 0.9 % (0-4.4); Hemoglobin 15.3 g/dL (14.0-18.0); Immature Granulocyte Absolute 0.01 K/mm3 (0.00-0.031); Immature Granulocyte Percent A 0.2 % (0-0.5); Lymphocytes Absolute Auto 0.67 K/mm3 (0.9-3.2); Lymphocytes Percent Auto 14.4 % (18.3-44.2); Mean Corpuscular HGB Conc 35.6 g/dl (32-36); Mean Corpuscular Hemoglobin 31.5 pg (26-34); Mean Corpuscular Volume 88.7 fl (80-100); Mean Platelet Volume 9.2 fl (7.4-10.4); Monocytes Absolute Auto 0.8 K/mm3 (0.1-0.6); Monocytes Percent Auto 16.1 % (2.6-8.5); Neutrophils Absolute Auto 3.2 K/mm3 (1.3-6.7); Platelet Count Result 163 k/mm3 (150-375); Red Blood Count 4.85 M/mm3 (4.6-6.20); Red Cell Distribution Width 13.2 % (11.5-14.5); White Blood Count 4.7 K/mm3 (4.5-10.0)
--- OUTSIDE RECORDS SUMMARY | 2024-05-13 13:38 | XMS_ITS | CONTINUITY OF CARE DOCUMENT ---
Author Name katherine murphy Address Unknown Organization [facility] Address [address] [place] [address] [address] [place] [address] Phone [phone] Care Team Providers Care Commissary Worker Name Role Phone katherine murphy Unavailable Unavailable RESULTS Date Observation Value Provider Reference Range Interpretation Location Estimated Glomerular Filtration Rate (calc) >60 [facility] protein, total, serum 7.3 g/dL [facility] albumin, serum 3.9 g/dL [facility] bilirubin, serum, total 0.6 mg/dL [facility] alkaline phosphatase, serum 75 1/L [facility] alanine aminotransferase (SGPT), serum 37 1/L [facility] aspartate aminotransferase (SGOT), serum 30 1/L [facility] calcium, serum 9.4 mg/dL [facility] blood glucose, fasting 115 mg/dL [facility] creatinine, serum 0.80 mg/dL [facility] urea nitrogen, blood 11 mg/dL [facility] carbon dioxide, serum, total 32 mmol/L [facility] chloride, serum 104 mmol/L [facility] potassium, serum 3.8 mmol/L [facility] sodium, serum 145 mmol/L [facility] platelet count 234 10*3/uL [facility] red blood cell distribution width 13.9 % [facility] mean corpuscular hemoglobin concentration, RBC 33.6 g/dL [facility] mean corpuscular hemoglobin, RBC 27.8 pg [facility] mean corpuscular volume, RBC 82.5 fL [facility] hematocrit, blood 41.4 % [facility] hemoglobin, blood 13.9 g/dL [facility] erythrocyte (RBC) count 5.02 10*6/mm3 [facility] monocyte count, blood 0.3 10*3/mm3 [facility] lymphocyte count, blood 1.1 10*3/mm3 [facility] monocytes as percent of blood leukocytes 4.3 % [facility] lymphocytes as percent of blood leukocytes 16.9 % [facility]on leukocyte count, blood 6.6 10*3/mm3 [facility]
--- OUTSIDE RECORDS SUMMARY | 2024-05-13 13:38 | XMS_ITS | Clinical Summary ---
Author Organization [facility] Address [address] [place] [address] Care Team Providers Care Furnace Setter Name Role Phone Juvencio Mccormick MD Unavailable [phone] Allergies Active Allergy Reactions Criticality Noted [...] nonorganic origin 2012 Hypertension 04/24/2012 Rheumatoid arthritis ([facility]) 3 Chest pain in adult Fatigue [...] age to complete this topic Care Teams Furnace Setter Relationship Specialty Start Date End Date Juvencio Mccormick MD [address] [address] Ángel Stereotype Molder CARDIOVASCULAR DISEASE 08/26/18
[2024-05-13 13:47] LABS: Add Urine Microscopic? YES; Alanine Aminotransferase 66 U/L (6-50); Albumin Level 4.7 g/dL (3.5-5.1); Alkaline Phosphatase 93 U/L (38-126); Anion Gap 15 mmol/L (4-12); Appearance Urine Cloudy (Clear); Aspartate Amino Transferase 116 U/L (17-59); Bacteria Urine None Seen /hpf; Bilirubin Urine 1+ (Negative); Bilirubin,Total 0.8 mg/dL (0.2-1.3); Blood Urea Nitrogen 7 mg/dL (9-20); Blood Urine Negative (Negative); Calcium 9.4 mg/dL (8.4-10.2); Carbon Dioxide 27 mmol/L (22-30); Chloride 93 mmol/L (98-107); Color Urine Dark Yellow (Yellow); Estimated CRCL calculation 66 ml/min; Estimated Glomerular Filt Rate > 60; Glucose 105 mg/dL (65-110); Glucose Urine UA Negative (Negative); Ketones Urine Trace mg/dL (Negative); Leukocyte Esterase Ur Trace LEU/UL (Negative); Lipase 108 U/L (23-300); Mucus Urine Present /lpf; Nitrate Urine Negative (Negative); Potassium 3.6 mmol/L (3.4-5.0); Protein Urine 1+ mg/dL (Negative); RBC Urine 0-2 /hpf (0-2); Sodium 135 mmol/L (137-145); Specific Grav Ur 1.022 (1.001-1.035); Squamous Epithelial Cell Urine Few /hpf (Few); pH Urine 5.5 (5.0-9.0)
--- OUTSIDE RECORDS SUMMARY | 2024-05-13 14:27 | XMS_ITS | Clinical Summary ---
Author Organization [facility] Address [address] [place] [address] Care Team Providers Care Biodiesel Product Development Manager Name Role Phone Juvencio Mccormick MD Unavailable [phone] Allergies Active Allergy Reactions Criticality Noted [...] nonorganic origin 2012 Hypertension 04/24/2012 Rheumatoid arthritis ([facility]) 3 Chest pain in adult Fatigue Resolved [...] age to complete this topic Care Teams Biodiesel Product Development Manager Relationship Specialty Start Date End Date Juvencio Mccormick MD [address] [phone] Ángel Stepdown Nurse CARDIOVASCULAR DISEASE 08/26/18
--- OUTSIDE RECORDS SUMMARY | 2024-05-13 14:27 | XMS_ITS | CONTINUITY OF CARE DOCUMENT ---
Author Name katherine murphy Address Unknown Organization [facility] Address [address] [place] [address] [address] [place] [address] Phone [phone] Care Team Providers Care Casting Wheel Operator Helper Name Role Phone katherine murphy Unavailable Unavailable RESULTS Date Observation Value Provider Reference Range Interpretation Location Estimated Glomerular Filtration Rate (calc) >60 [facility] protein, total, serum 7.3 g/dL [facility] albumin, serum 3.9 g/dL [facility] bilirubin, serum, total 0.6 mg/dL [facility] alkaline phosphatase, serum 75 1/L [facility] alanine aminotransferase (SGPT), serum 37 1/L [facility] aspartate aminotransferase (SGOT), serum 30 1/L [facility] calcium, serum 9.4 mg/dL [facility] blood glucose, fasting 115 mg/dL [facility] creatinine, serum 0.80 mg/dL [facility] urea nitrogen, blood 11 mg/dL [facility] carbon dioxide, serum, total 32 mmol/L [facility] chloride, serum 104 mmol/L [facility] potassium, serum 3.8 mmol/L [facility] sodium, serum 145 mmol/L [facility] platelet count 234 10*3/uL [facility] red blood cell distribution width 13.9 % [facility] mean corpuscular hemoglobin concentration, RBC 33.6 g/dL [facility] mean corpuscular hemoglobin, RBC 27.8 pg [facility] mean corpuscular volume, RBC 82.5 fL [facility] hematocrit, blood 41.4 % [facility] hemoglobin, blood 13.9 g/dL [facility] erythrocyte (RBC) count 5.02 10*6/mm3 [facility] monocyte count, blood 0.3 10*3/mm3 [facility] lymphocyte count, blood 1.1 10*3/mm3 [facility] monocytes as percent of blood leukocytes 4.3 % [facility] lymphocytes as percent of blood leukocytes 16.9 % [facility] leukocyte count, blood 6.6 10*3/mm3 [facility]
[2024-05-13 14:55] LABS: Thyroid Stimulating Hormone Reflex 0.276 uIU/mL (0.465-4.68)
[2024-05-13 16:25] LABS: Free T4 Free Thyroxine Reflex 1.12 ng/dL (0.78-2.19)
--- NOTE | 2024-05-13 16:32 | ED.GENADULT ---
HPI - General Adult General Chief complaint: Weakness Stated complaint: Hiccups Time Seen by Provider: 05/13/24 12:53 History of Present Illness HPI narrative: This is a 60-year-old male presenting ED with a chief complaint of hiccups. Patient says that he has been having hiccups over the last 2 weeks. They have gotten worse over the last 3 days. They have been keeping his and him awake at night. They are associated with significant anxiety. He denies fevers chills chest pain difficulty breathing or urinary symptoms. Patient told triage that he was here for abdominal pain but after speaking to him his abdominal pain has been going ongoing for 3 years, he has had multiple CT scans, colonoscopies and other evaluations at a time negative. The patient states that is not his reason for coming to the ED today and he is comfortable following up his primary care physician for those complaints. Related Data Home Medications ?Medication ?Instructions ?Recorded ?Confirmed ?Last Taken ?Type aspirin 81 mg tablet 81 mg PO DAILY 03/10/21 04/11/24 05/02/22 History acetaminophen 500 mg tablet 500 mg PO Q6H PRN Pain 03/15/21 04/11/24 Unknown History (Tylenol Extra Strength) potassium 99 mg tablet 99 mg PO EVERY OTHER DAY 04/25/22 04/11/24 04/27/22 History Allergies Allergy/AdvReac Type Severity Reaction Status Date / Time amlodipine Allergy Mild Swelling, Verified 04/11/24 07:12 rash codeine Allergy Mild hives, Verified 04/11/24 07:12 itchy PMFSH Past Medical History Medical History (Updated 05/13/24 @ 16:40 by Delmar Samuels MD) BMI 24.0-24.9, adult Complete tear of right rotator cuff Aftercare following surgery of the musculoskeletal system Acute pain of right shoulder Right knee injury Hyperlipidemia Hypertension Arthritis Surgical History Surgical History History of umbilical hernia repair open incarcerated umbilical hernia repair w/ mesh 03/14/21 H/O repair of right rotator cuff Family History Family History Father Cerebrovascular accident Mother Acute myocardial infarction Other Hypertension Social History Social History (Updated 04/11/24 @ 07:38 by Ana Lilia Coffey [facility]) Smoking packs per day: 1 Smoking cigarettes per day: 20.0 Years smoked: 20 Smoking pack-years: 20.00 Smoking status: Former smoker Tobacco type: cigarettes Second hand tobacco smoke exposure: No Smoking end date: 09/03/99 Alcohol intake: current Drinks per week: 10 Substance use: never Substance use type: does not use Do You Feel Safe in your Home?: Yes Lack of Transportation: No Lack of Food: Never True Current Housing: I Have Housing Concerned About Future Housing: No Difficulty Paying Gas/Electric Bills: No Difficulty Paying for Meds: No Currently Unemployed: No Education: High School Diploma/GED Difficulty w/ Childcare or Family Care: No Living arrangements: with family Additional living arrangements comments: Occupation/Education: unemployed 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 Head: atraumatic. EYES: EOMI, NOSE: Atraumatic NECK: Trachea midline RESPIRATORY: No increased rate of breathing CTAB CARDIOVASCULAR: RRR, no peripheral edema ABDOMINAL: Non-distended soft nontender no guarding rebound MUSCULOSKELETAl: No obvious deformities NEURO: Alert. Moving 4/4 extremities SKIN:: Warm, dry. Normal color PSYCHIATRIC: Anxious appearing Course Vital Signs Vital signs: Vital Signs Temperature 97.8 F 05/13/24 12:33 Pulse Rate 109 H 05/13/24 12:33 Respiratory Rate 16 05/13/24 12:33 Blood Pressure 118/81 05/13/24 12:33 Pulse Oximetry 98 05/13/24 12:33 Oxygen Delivery Room Air 05/13/24 12:33 Temperature 97.8 F 05/13/24 12:33 Pulse Rate 109 H 05/13/24 12:33 Respiratory Rate 16 05/13/24 12:33 Blood Pressure 118/81 05/13/24 12:33 Pulse Oximetry 98 05/13/24 12:33 Oxygen Delivery Room Air 05/13/24 12:33 Medical Decision Making MDM Narrative Medical decision making narrative: -Course: 68-year-old male presenting ED with chief complaint of hiccups. He also appears very anxious. Patient will be given a dose of Valium for his anxiety. He is given a prescription for Thorazine for hiccups. Patient will follow-up with primary care physician for further management. Given return precautions. Screening lab work unremarkable. -DDX includes but is not limited to: Hiccups, anxiety, panic disorder Vital Signs Vital Signs: Vital Signs Temperature 97.8 F 05/13/24 12:33 Pulse Rate 109 H 05/13/24 12:33 Respiratory Rate 16 05/13/24 12:33 Blood Pressure 118/81 05/13/24 12:33 Pulse Oximetry 98 05/13/24 12:33 Oxygen Delivery Room Air 05/13/24 12:33 Temperature 97.8 F 05/13/24 12:33 Pulse Rate 109 H 05/13/24 12:33 Respiratory Rate 16 05/13/24 12:33 Blood Pressure 118/81 05/13/24 12:33 Pulse Oximetry 98 05/13/24 12:33 Oxygen Delivery Room Air 05/13/24 12:33 Lab Data 05/13/24 13:26 05/13/24 13:26 Labs: Lab Results 05/13/24 Range/Units 13:26 WBC 4.7 (4.5-10.0) K/mm3 RBC 4.85 (4.6-6.20) M/mm3 Hgb 15.3 (14.0-18.0) g/dL Hct 43.0 (42.0-52.0) % MCV 88.7 (80-100) fl MCH 31.5 (26-34) pg MCHC 35.6 (32-36) g/dl RDW 13.2 (11.5-14.5) % Plt Count 163 (150-375) k/mm3 MPV 9.2 (7.4-10.4) fl Immature Gran % (Auto) 0.2 (0-0.5) % Neut % (Auto) 68.0 (45.5-73.1) % Lymph % (Auto) 14.4 L (18.3-44.2) % Page % (Auto) 16.1 H (2.6-8.5) % Eos % (Auto) 0.9 (0-4.4) % Baso % (Auto) 0.4 (0.2-1.2) % Lymph # (Auto) 0.67 L (0.9-3.2) K/mm3 Page # (Auto) 0.8 H (0.1-0.6) K/mm3 Eos # (Auto) 0.0 (0-0.3) K/mm3 Baso # (Auto) 0.0 (0.0-0.1) K/mm3 Abs Immat Gran (auto) 0.01 (0.00-0.031) K/mm3 Absolute Neuts (auto) 3.2 (1.3-6.7) K/mm3 Absolute Nucleated RBC 0.000 (0.0-0.012) K/mm3 Nucleated RBC % 0.0 (0.0-0.2) % Sodium 135 L (137-145) mmol/L Potassium 3.6 (3.4-5.0) mmol/L Chloride 93 L (98-107) mmol/L Carbon Dioxide 27 (22-30) mmol/L Anion Gap 15 H (4-12) mmol/L BUN 7 L D (9-20) mg/dL Creatinine 0.85 (0.7-1.3) mg/dL Estim Creat Clear Calc 66 ml/min Estimated GFR > 60 (59 - ) Glucose 105 (65-110) mg/dL Calcium 9.4 (8.4-10.2) mg/dL Total Bilirubin 0.8 (0.2-1.3) mg/dL AST 116 H (17-59) U/L ALT 66 H (6-50) U/L Alkaline Phosphatase 93 (38-126) U/L Total Protein 8.0 (6.3-8.2) g/dL Albumin 4.7 (3.5-5.1) g/dL Lipase 108 (23-300) U/L TSH (Reflex) 0.276 L (0.465-4.68) uIU/mL Free T4 1.12 (0.78-2.19) ng/dL Total T3 Pending Urine Color Dark yellow (Yellow) Urine Appearance Cloudy H (Clear) Urine pH 5.5 (5.0-9.0) Ur Specific [place] 1.022 (1.001-1.035) Urine Protein 1+ H (Negative) mg/dL Urine Glucose (UA) Negative (Negative) mg/dL Urine Ketones Trace H (Negative) mg/dL Ur Blood (Man) Negative (Negative) Urine Nitrate Negative (Negative) Urine Bilirubin 1+ H (Negative) Urine Urobilinogen 1.0 (<2.0) mg/dL Leukocyte Esterase Rfl Trace H (Negative) [place] Urine RBC 0-2 (0-2) /hpf Urine WBC 6-10 H (0-3) /hpf Ur Squamous Epith Cells Few (Few) /hpf Urine Bacteria None seen /hpf Urine Casts 11-20 Urine Mucus Present /lpf Discharge Plan Discharge Clinical Impression: Hiccups, Anxiety Patient Disposition: Home, Self-Care Condition: Stable Instructions: Antibiotic Form, Hiccups (ED) Additional Instructions: Please use Thorazine for hiccups. Please follow-up with your primary care for further management of your hiccups and your anxiety. You can return to the ED if you develop any new or worsening symptoms. Patient Language: Lithuanian Prescriptions: New chlorpromazine 25 mg tablet 25 mg PO Q6H PRN (Reason: hiccups) Qty: 30 0RF No Action acetaminophen [Tylenol Extra Strength] 500 mg tablet 500 mg PO Q6H PRN (Reason: Pain) tamsulosin 0.4 mg capsule 0.4 mg PO DAILY Qty: 90 3RF omeprazole 40 mg capsule,delayed release(DR/EC) 40 mg PO DAILY Qty: 90 1RF aspirin 81 mg Tablet 81 mg PO DAILY potassium 99 mg Tablet 99 mg PO EVERY OTHER DAY fluticasone propion-salmeterol [Advair Diskus] 100-50 mcg/dose blister with device 1 inh inhalation Q12H Qty: 60 5RF albuterol sulfate 90 mcg/actuation HFA aerosol inhaler 2 puff inhalation Q4-6H PRN (Reason: shortness of breath or wheezing) Qty: 25.5 2RF lisinopril-hydrochlorothiazide 20-12.5 mg tablet 2 tablet PO QAM Qty: 90 1RF Follow-up/Referrals: Lazarus Dewey APRN [Primary Care Provider] -
[2024-05-13 17:08] LABS: Total Triiodothyronine (T3) 1.42 NG/ML (0.97-1.69)
== END 2024-05-13 16:32 | disposition home or self-care (01) ==
PROVIDERS: Physician Assistant; Emergency Provider Emergency Medicine; PCP Nurse Practitioner
DX: F41.9 Anxiety disorder, unspecified (principal); R06.6 Hiccough; I10 Essential (primary) hypertension; E78.5 Hyperlipidemia, unspecified; M19.90 Unspecified osteoarthritis, unspecified site; R82.998 Other abnormal findings in urine
CPT/HCPCS: 36415; 80053; 81001; 83690; 84439; 84443; 84480; 85025; 87086; 96374; 99284; J2405

== ENCOUNTER 2024-06-10 16:56 | Outpatient (CLI) | payer MEDICARE, SELFPAY ==
--- NOTE | ~2024-06-10 | US_ITS ---
Thyroid ultrasound. Clinical History: Abnormal findings of blood chemistry Findings: Real-time sonography of the thyroid gland was performed. The right lobe measures 4.6 x 1.6 x 1.7 cm. The left lobe measures 3.7 x 1.1 x 1.6 cm. The isthmus is 3 mm in AP diameter. There is a 3 mm heterogeneous hypoechoic nodule at the left upper pole. Impression: 3 mm left upper pole nodule. Given small size, no definite follow-up is required.. Reviewed, dictated and finalized at location M. Impression: 3 mm left upper pole nodule. Given small size, no definite follow-up is require d..
--- OUTSIDE RECORDS SUMMARY | 2024-06-10 17:13 | XMS_ITS | Referral Summary ---
Author Organization [facility] Address [address] [place] [id number] Care Team Providers Care [employer] Protection Maintainer Name Role Phone Lazarus Dewey NP Primary Care Provider [phone] Encounters Date Type Department Care Team Description 05/31/2024 5:11 PM CDT - 05/31/2024 9:57 PM CDT Emergency [facility] Emergency Department [address] [place] [id number] Myla Meng MD Scarbrough, Maria L., MD Fall, initial encounter (Primary Dx); Hypotension, unspecified hypotension type; Hypokalemia; Hyponatremia Discharge Disposition: Discharge to home or self care from Last 3 Months Allergies Active Allergy Reactions Criticality Noted Date Comments Codeine Rash Medium 05/31/2024 Social History Tobacco Use Types Packs/Day Years Used Date Smoking Tobacco: Never Assessed Personal Safety Answer Date Recorded Have you ever been in or are you currently in a harmful physical or emotional relationship or is someone making you feel afraid or unsafe? 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[employer] Gender Identity Not on file Sexual Orientation Not on file Last Filed Vital Signs Vital Sign Reading Time Taken Comments Blood Pressure 139/99 05/31/2024 9:30 PM CDT Pulse 96 05/31/2024 9:30 PM CDT Temperature 36.4 C (97.5 F) 05/31/2024 4:58 PM CDT Respiratory Rate 20 05/31/2024 9:30 PM CDT Oxygen Saturation 99% 05/31/2024 9:30 PM CDT Inhaled Oxygen Concentration - - Weight 68.5 kg (151 lb 0.2 oz) 05/31/2024 4:58 P M CDT Height - - Body Mass Index - - Plan of Treatment Not on file Procedures Procedure Name Priority Date/Time Associated Diagnosis Comments SEPSIS LACTATE WITH REFLEX Timed 05/31/2024 9:26 PM CDT TROPONIN T HIGH-SENSITIVITY 4-HR Timed 05/31/2024 9:26 PM CDT URINALYSIS AND REFLEX TO MICROSCOPIC AND CULTURE STAT 05/31/2024 7:19 PM CDT BLOOD CULTURE STAT 05/31/2024 6:54 PM CDT BLOOD CULTURE STAT 05/31/2024 6:[address] CERVICAL SPINE WO CONTRAST ED 05/31/2024 6:[address] HEAD WO CONTRAST ED 05/31/2024 6 :28 PM CDT XR CHEST 1 VIEW ED 05/31/2024 6:10 PM CDT ECG 12-LEAD STAT 05/31/2024 5:19 PM CDT EGFR STAT 05/31/2024 5:18 PM CDT ETHANOL Add-On 05/31/2024 5:18 PM CDT DIFFERENTIAL AUTO STAT 05/31/2024 5:1 8 PM CDT SEPSIS LACTATE WITH REFLEX STAT 05/31/2024 5:18 PM CDT TROPONIN T HIGH-SENSITIVITY SERIES (BASELINE, 2HR, 4HR, 6HR) STAT 05/31/2024 5:18 PM CDT COMPREHENSIVE METABOLIC PANEL STAT 05/31/2024 5:18 PM CDT CBC WITH AUTO DIFFERENTIAL STAT 05/31/2024 5:18 PM CDT from Last 3 Months Results * Troponin T high-sensitivity 4-hour (05/31/2024 9:26 PM CDT) Pathologist [facility] [place] Trop T hs 9 <=22 ng/L Comment: Interpretive Data For further hscTnT resources including the diagnostic algorithm and an aid in interpretation, copy and paste this link: https://nrl.testcatalog.org/show/hsTrop Current Interpretive Data last revised 2020. Testing performed by: [address] [address] Trop T hs delta -3 ng/L JESÚS Comment:Testing performed by : [address] [address] Trop T hs interp Insignificant JESÚS Comment:Testing performed by : [address] [address] Blood 05/31/2024 9:26 PM CDT 05/31/2024 9:34 PM CDT us Myla Meng MD LAB BLOOD ORDERABLES Final Result Performing Organization Address [facility] Co de Phone Number [address] [place] [place] [address] * Sepsis Lactate w/ Reflex (05/31/2024 9:26 PM CDT) [facility] Sepsis Lactate 1.5 0.7 - 2.0 mmol/L Comment:Testing performed by : [address] [address] Blood 05/31/2024 9:26 PM CDT 05/31/2024 9:34 PM CDT us Glenda DELCID LAB BLOOD ORDERABLES Marlene l Result Performing Organization Address City/[facility]/ZIP Co de Phone Number [address] [place] [employer] [place] [address] * (ABNORMAL) Urinalysis reflex to microscopic and culture Urine (05/31/2024 7:19 PM CDT) Color, ur Yellow Yellow Comment:Testing performed by : [address] [address] Clarity, ur Cloudy(A) Clear JESÚS Comment:Testing performed by : [address], [place]., [address] Specific gravity, ur 1.009 1.003 - 1.030 JESÚS Comment:Testing performed by : [address], [place]., [address] pH, urine 5.5 JESÚS Comment: Interpretive Data U rine pH is affected by diet, medications, systemic acid-base disturbances, and renal tubular function. pH may affect urinary stone formation. For example, urine pH below 6.0 may help reduce the tendency for calcium phosphate stones and pH greater than 6.0 may reduce the tendency for uric acid stone formation. Source: [facility] [employer] Current Interpretive Data was last revised on 2017 Testing performed by: [address] [address] Protein, ur ql Negative Negative JESÚS Comment:Testing performed by : [address] [address] Glucose, ur ql Negative Negative JESÚS Comment:Testing performed by : [address] [address] Ketones, ur Negative Negative JESÚS Comment:Testing performed by : [address] [address] Bilirubin, ur Negative Negative JESÚS Comment:Testing performed by : [address] [address] Blood, ur Negative Negative JESÚS Comment:Testing performed by : [address], [place]., [address] Urobilinogen, ur 2.0(A) <2.0 mg/dL JESÚS Comment:Testing performed by : [address], [place]., [address] Nitrite, ur Negative Negative JESÚS Comment:Testing performed by : [address] [address] Leukocyte esterase, ur Negative Negative JESÚS GUTIERREZ Comment:Testing performed by : [facility], [address] [place] [address]., [address] UA reflex comment Reflex conditions for microscopic UA and culture not met. JESÚS GUTIERREZ Comment:Testing performed by : [facility], [address] [place] [address]., [address] Urine 05/31/2024 7:19 PM CDT 05/31/2024 7:25 PM CDT Myla Meng MD LAB MICROBIOLOGY - GENERAL ORDERABLES Final Result JESÚS GUTIERREZ [address] [facility] Department [place] [address] * Blood culture Blood Peripheral (05/31/2024 6:54 PM CDT) Report Final Report: No growth Comment:Testing performed by : [facility], [address] [place] [place]., [address] Blood (Peripheral) 05/31/2024 6:54 PM CDT 05/31/2024 9:32 PM CDT Narrative JESÚS GUTIERREZ - 06/05/2024 7:00 AM CDT From a different site than #1. Draw Blood cultures before administration of Antibiotics Collection->Peripheral 1. Blood cultures are incubated for 4 days on a continuously monitored blood culture system. The first report of a negative culture is issued within 24 hours of receipt of the specimen in the laboratory. 2. Positive culture results are reported as soon as they are detected. 3. The most important factor for detection of microbes in the setting of bloodstream infection is the volume of blood submitted for culture. Failure to collect an optimal blood volume can result in false negative blood cultures. 4. For pediatric patients, the recommended blood volume to collect follows a weight based strategy. See the electronic test catalog for collection instructions. 5. For positive blood cultures, a rapid molecular test may be performed for organism identification using the mino ePlex blood culture identification panel for gram positive (BCID-GP) and gram negative (BCID-GN) organisms. This nucleic acid amplification test detects microbial DNA in positive blood culture broth. This assay has been cleared by the [place] Food and Drug Administration and its performance characteristics have been verified by the [facility]. For questions about this culture, contact the Microbiology Laboratory at [phone]. Interpretive data was last revised on 23. Myla Meng MD LAB MICROBIOLOGY - GENERAL ORDERABLES Final Result JESÚS [address] [facility] Department [place] [address] * Blood culture Blood Peripheral (05/31/2024 6:53 PM CDT) Report Final Report: No growth Comment:Testing performed by : [facility], [address] [place]., [address] Blood (Peripheral) 05/31/2024 6:53 PM CDT 05/31/2024 9:31 PM CDT [facility] JESÚS - 06/05/2024 7:00 AM CDT Draw Blood cultures before administration of Antibiotics Collection->Peripheral 1. Blood cultures are incubated for 4 days on a continuously monitored blood culture system. The first report of a negative culture is issued within 24 hours of receipt of the specimen in the laboratory. 2. Positive culture results are reported as soon as they are detected. 3. The most important factor for detection of microbes in the setting of bloodstream infection is the volume of blood submitted for culture. Failure to collect an optimal blood volume can result in false negative blood cultures. 4. For pediatric patients, the recommended blood volume to collect follows a weight based strategy. See the electronic test catalog for collection instructions. 5. For positive blood cultures, a rapid molecular test may be performed for organism identification using the mino ePlex blood culture identification panel for gram positive (BCID-GP) and gram negative (BCID-GN) organisms. This nucleic acid amplification test detects microbial DNA in positive blood culture broth. This assay has been cleared by the [place] Food and Drug Administration and its performance characteristics have been verified by the [facility]. For questions about this culture, contact the Microbiology Laboratory at [phone]. Interpretive data was last revised on 23. Myla Meng MD LAB MICROBIOLOGY - GENERAL ORDERABLES Final Result JESÚS [address] [facility] Department [place] [address] * CT Cervical Spine WO Contrast (05/31/2024 6:28 PM CDT) Anatomical Region Laterality Modality Spine N/A Computed Tomogra phy 05/31/2024 6:42 PM CDT Narrative 05/31/2024 6:44 PM CDT EXAM DESCRIPTION: CT CERVICAL SPINE WO CONTRAST REASON FOR STUDY: Neck trauma (Age >= 65y) Over the past week I've been getting really dizzy anytime I stand up. I have no appetite. I've been having bad night sweats during the night. I nap all throughout the day. I also have really bad anxiety and get the shakes. My doctor was supposed to prescribe me some valium for that. Pt also reports today he fell in the shower and fell onto the back of his head and neck. Unsure of LOC. TECHNIQUE: Axial images through the cervical spine with sagittal and coronal reformatted images. Automated exposure control was used as a dose optimization technique for this examination. COMPARISON: None FINDINGS: ALIGNMENT: Normal. VERTEBRAE: No fracture. Vertebral body heights well-maintained. DISCS: Mild intervertebral disc narrowing is seen at C4-C5, C5-C6 and C6-C7. HARDWARE: None in the spine. INDIVIDUAL LEVELS: Canal contents are not well seen by CT No significant osseous spinal stenosis or neural foraminal stenosis. UPPER THORACIC: Incompletely imaged. No significant osseous spinal stenosis or osseous neural foraminal stenosis. SKULL BASE: No significant finding. LUNG APICES: No significant abnormality. NECK SOFT TISSUES: No significant abnormality. OTHER: No other significant findings. IMPRESSION: Unremarkable cervical spine CT. Mild degenerative changes are noted THIS IS AN ELECTRONICALLY VERIFIED FINAL REPORT 05/31/2024 6:44 PM - Electronically signed by Cornell Maya M.D. KH: SAHARA Report ID: [id number] Reading Location: [id number] Procedure Note Cornell Maya MD - 05/31/2024 EXAM DESCRIPTION: CT CERVICAL SPINE WO CONTRAST REASON FOR STUDY: Neck trauma (Age >= 65y) Over the past week I've been getting really dizzy anytime I stand up. Ihave no appetite. I've been having bad night sweats during the night. I nap all throughout the day. I also have really bad anxiety and get the shakes. My doctor was supposed to prescribe me some valium for that. Pt also reports today he fell in the shower and fell onto the back of his head and neck. Unsure of LOC. TECHNIQUE: Axial images through the cervical spine with sagittal andcoronal reformatted images. Automated exposure control was used as a doseoptimization technique for this examination. COMPARISON: None FINDINGS: ALIGNMENT: Normal. VERTEBRAE: No fracture. Vertebral body heights well-maintained. DISCS: Mild intervertebral disc narrowing is seen at C4-C5, C5-C6 andC6-C7. HARDWARE: None in the spine. INDIVIDUAL LEVELS: Canal contents are not well seen by CT No significant osseous spinal stenosis or neural foraminal stenosis. UPPER THORACIC: Incompletely imaged. No significant osseous spinalstenosis or osseous neural foraminal stenosis. SKULL BASE: No significant finding. LUNG APICES: No significant abnormality. NECK SOFT TISSUES: No significant abnormality. OTHER: No other significant findings. IMPRESSION: Unremarkable cervical spine CT. Mild degenerative changesare noted THIS IS AN ELECTRONICALLY VERIFIED FINAL REPORT 05/31/2024 6:44 PM - Electronically signed by Cornell Maya M.D. KH: SAHARA Report ID: [id number] Reading Location: [id number] us Myla Meng MD IMG CT PROCEDURES Final Res ult * CT Head WO Contrast (05/31/2024 6:28 PM CDT) Anatomical Region Laterality Modality Head and Neck N/A Computed Tomogra phy 05/31/2024 6:44 PM CDT Narrative 05/31/2024 6:46 PM CDT EXAM DESCRIPTION: CT HEAD WO CONTRAST REASON FOR STUDY: Head trauma, minor (Age >= 65y) Over the past week I've been getting really dizzy anytime I stand up. I have no appetite. I've been having bad night sweats during the night. I nap all throughout the day. I also have really bad anxiety and get the shakes. My doctor was supposed to prescribe me some valium for that. Pt also reports today he fell in the shower and fell onto the back of his head and neck. Unsure of LOC. TECHNIQUE: Axial images acquired through the brain without intravenous contrast. Images stored on PACS. Automated exposure control was used as a dose optimization technique for this examination. COMPARISON: None FINDINGS: BRAIN: No hemorrhage, edema or mass effect. No recent infarct. Moderate diffuse atrophy of the brain is noted. EXTRA-AXIAL SPACES: No fluid collections. No masses. CALVARIUM: No fracture. SINUSES/MASTOIDS: No fluid or mucosal thickening. ORBITS: No significant abnormality. OTHER: No other significant abnormality. IMPRESSION: No acute intracranial findings. THIS IS AN ELECTRONICALLY VERIFIED FINAL REPORT 05/31/2024 6:46 PM - Electronically signed by Cornell Maya M.D. KH: SAHARA Report ID: [id number] Reading Location: [id number] Procedure Note Cornell Maya MD - 05/31/2024 EXAM DESCRIPTION: CT HEAD WO CONTRAST REASON FOR STUDY: Head trauma, minor (Age >= 65y) Over the past week I've been getting really dizzy anytime I stand up. Ihave no appetite. I've been having bad night sweats during the night. I nap all throughout the day. I also have really bad anxiety and get the shakes. My doctor was supposed to prescribe me some valium for that. Pt also reports today he fell in the shower and fell onto the back of his head and neck. Unsure of LOC. TECHNIQUE: Axial images acquired through the brain without intravenous contrast. Images stored on PACS. Automated exposure control was used asa dose optimization technique for this examination. COMPARISON: None FINDINGS: BRAIN: No hemorrhage, edema or mass effect. No recent infarct. Moderate diffuse atrophy of the brain is noted. EXTRA-AXIAL SPACES: No fluid collections. No masses. CALVARIUM: No fracture. SINUSES/MASTOIDS: No fluid or mucosal thickening. ORBITS: No significant abnormality. OTHER: No other significant abnormality. IMPRESSION: No acute intracranial findings. THIS IS AN ELECTRONICALLY VERIFIED FINAL REPORT 05/31/2024 6:46 PM - Electronically signed by Cornell SHOEMAKER: SAHARA Report ID: [id number] Reading Location: [id number] us Myla Meng MD IMG CT PROCEDURES Final Res ult * XR Chest 1 Vw Portable (05/31/2024 6:10 PM CDT) Anatomical Region Laterality Modality Body, Chest N/A Computed Radiogr aphy 05/31/2024 6:41 PM CDT Narrative 05/31/2024 6:42 PM CDT EXAM DESCRIPTION: XR CHEST 1 VIEW REASON FOR STUDY: Fall Pt reports Over the past week I've been getting really dizzy anytime I stand up. I have no appetite. I've been having bad night sweats during the night. I nap all throughout the day. I also have really bad anxiety and get the shakes. My doctor was supposed to prescribe me some valium for that. Pt also reports today he fell in the shower and fell onto the back of his head and neck. Unsure of LOC TECHNIQUE: Single radiographic view(s) of the chest. COMPARISON: None FINDINGS: LUNGS: No focal opacity, pleural effusion, or pneumothorax. HEART/MEDIASTINUM: Cardiac silhouette normal in size. Mediastinal and hilar contours appear normal. LINES/TUBES: None. BONES: No acute osseous abnormality. IMPRESSION: No acute cardiopulmonary abnormality. THIS IS AN ELECTRONICALLY VERIFIED FINAL REPORT 05/31/2024 6:42 PM - Electronically signed by Cornell SHOEMAKER: SAHARA Report ID: [id number] Reading Location: [id number] Procedure Note Cornell Maya MD - 05/31/2024 EXAM DESCRIPTION: XR CHEST 1 VIEW REASON FOR STUDY: Fall Pt reports Over the past week I've been getting really dizzy anytime Istand up. I have no appetite. I've been having bad night sweats during thenight. I nap all throughout the day. I also have really bad anxiety and get theshakes. My doctor was supposed to prescribe me some valium for that. Ptalso reports today he fell in the shower and fell onto the back of his head and neck. Unsure of LOC TECHNIQUE: Single radiographic view(s) of the chest. COMPARISON: None FINDINGS: LUNGS: No focal opacity, pleural effusion, or pneumothorax. HEART/MEDIASTINUM: Cardiac silhouette normal in size. Mediastinal andhilar contours appear normal. LINES/TUBES: None. BONES: No acute osseous abnormality. IMPRESSION: No acute cardiopulmonary abnormality. THIS IS AN ELECTRONICALLY VERIFIED FINAL REPORT 05/31/2024 6:42 PM - Electronically signed by Cornell Maya M.D. KH: SAHARA Report ID: [id number] Reading Location: [id number] Myla Meng MD IMG XR PROCEDURES Final Res ult * ECG 12 lead (05/31/2024 5:19 PM CDT) Ventricular Rate EKG/Min 102 BPM [facility] Atrial Rate 102 BPM [facility] NV-Interval (MSEC) 154 ms [facility] QRS-Interval (MSEC) 80 ms [facility] QT-Interval (MSEC) 356 ms [facility] QTc 463 ms [facility] P [place] 49 degrees [facility] R [place] 103 degrees [facility] T [place] 73 degrees [facility] Diagnosis Sinus tachycardia Rightward axis Anterior infarct , age undetermined Abnormal ECG No previous ECGs available Confirmed by MARY MCGEE M.D. ([id number]) on 06/01/2024 10:55:01 PM [facility] 05/31/2024 5:19 PM CDT 06/01/2024 10:55 PM CDT us Myla Meng MD ECG ORDERABLES Final Resul t [facility] * Troponin T high-sensitivity series (baseline, 2hr, 4hr, 6hr) (05/31/2024 5:18 PM CDT) Trop T hs 12 <=22 ng/L Comment: Interpretive Data For further hscTnT resources including the diagnostic algorithm and an aid in interpretation, copy and paste this link: https://nrl.testcatalog.org/show/hsTrop Current Interpretive Data last revised 2020. Testing performed by: [address] [address] Blood 05/31/2024 5:18 PM CDT 05/31/2024 5:24 PM CDT us Myla Meng MD LAB BLOOD ORDERABLES Final Result Performing Organization Address [facility] Co de Phone Number [address] [place] [address] * (ABNORMAL) Sepsis Lactate w/ Reflex (05/31/2024 5:18 PM CDT) Sepsis Lactate 2.9(H) 0.7 - 2.0 mmol/L Comment:Testing performed by : [address] [address] Blood 05/31/2024 5:18 PM CDT 05/31/2024 5:24 PM CDT us Glenda DELCID LAB BLOOD ORDERABLES Marlene l Result Performing Organization Address City/[facility]/ZIP Co de Phone Number [address] [place] [employer] [place] [address] * (ABNORMAL) eGFR (05/31/2024 5:18 PM CDT) eGFR 52(L) >=60 mL/min/1. 73 m2 Comment: Interpretive Data Reference Interval Normal >/= 90 mL/min/1.73m2 Mildly decreased* 60 - 89 mL/min/1.73m2 Mildly to moderately decreased 45 - 59 mL/min/1.73m2 Moderately to severely decreased 30 - 44 mL/min/1.73m2 Severely decreased 15 - 29 mL/min/1.73m2 Kidney Failure < 15 mL/min/1.73m2 *Relative to young adult level Estimated glomerular filtration rate is determined by the 2020 CKD-EPI equation recommended by the National Kidney Foundation (A Unifying Approach to GFR Estimation: Recommendations of the NKF-ASK Task Force on Reassessing the Inclusion of Race in Diagnosing Kidney Disease, JASN 2020). The CKD-EPI equation should not be used for patients with unstable renal function and has not been validated in children and those over 70. Current interpretive data was last reviewed 2021. Testing performed by: [address] [address] Blood 05/31/2024 5:18 PM CDT 05/31/2024 5:24 PM CDT Myla Meng MD LAB BLOOD ORDERABLES Final Result JESÚS [address] [facility] Department [place] [address] * (ABNORMAL) Differential, auto (05/31/2024 5:18 PM CDT) Pathologist [facility] [place] Neutrophil abs 7.7(H) 1.5 - 6.5 K/cumm Comment:Testing performed by : [address] [address] Imm gran abs 0.1 0.0 - 0.1 K/cumm JESÚS Comment:Testing performed by : [address] [address] Lymphocyte abs 0.4(L) 0.8 - 3.3 K/cumm JESÚS Comment:Testing performed by : [address] [address] Monocyte abs 1.2(H) 0.2 - 0.8 K/cumm [facility] Comment:Testing performed by : [address] [address] Eosinophil abs 0.1 0.0 - 0.5 K/cumm [facility] Comment:Testing performed by : [address] [address] Basophil abs 0.0 0.0 - 0.1 K/cumm [facility] Comment:Testing performed by : [address] [address] Neutrophil pct 80.9 % [facility] Comment: Interpretive Data Percent cell count reference ranges are not reported, since discordance with absolute values may lead to misinterpretation of CBC data. Current Interpretive Data was last revised on 2017. Testing performed by: [address] [address] Imm gran pct 0.5 % [facility] Comment: Interpretive Data Percent cell count reference ranges are not reported, since discordance with absolute values may lead to misinterpretation of CBC data. Current Interpretive Data was last revised on 2017. Testing performed by: [address] [address] Lymphocyte pct 4.2 % [facility] Comment: Interpretive Data Percent cell count reference ranges are not reported, since discordance with absolute values may lead to misinterpretation of CBC data. Current Interpretive Data was last revised on 2017. Testing performed by: [address] [address] Monocyte pct 13.0 % [facility] Comment: Interpretive Data Percent cell count reference ranges are not reported, since discordance with absolute values may lead to misinterpretation of CBC data. Current Interpretive Data was last revised on 2017. Testing performed by: [address] [address] Eosinophil pct 1.2 % [facility] Comment: Interpretive Data Percent cell count reference ranges are not reported, since discordance with absolute values may lead to misinterpretation of CBC data. Current Interpretive Data was last revised on 2017. Testing performed by: [address] [address] Basophil pct 0.2 % JESÚS GUTIERREZ Comment: Interpretive Data Percent cell count reference ranges are not reported, since discordance with absolute values may lead to misinterpretation of CBC data. Current Interpretive Data was last revised on 2017. Testing performed by: [address] [address] Blood 05/31/2024 5:18 PM CDT 05/31/2024 5:24 PM CDT us Myla Meng MD LAB BLOOD ORDERABLES Final Result [facility] [place] [facility] Department [place] [address] * (ABNORMAL) CBC with auto differential (05/31/2024 5:18 PM CDT) WBC 9.5 3.8 - 9.9 K/cumm Comment:Testing performed by : [address] [address] Hgb 14.4 13.0 - 17.5 g/dL JESÚS GUTIERREZ Comment:Testing performed by : [address] [address] Hct 40.7 38.9 - 50.3 % JESÚS GUTIERREZ Comment:Testing performed by : [address] [address] Plt 146(L) 150 - 400 K/cumm JESÚS GUTIERREZ Comment:Testing performed by : [address] [address] MPV 9.8 9.1 - 12.3 fL JESÚS GUTIERREZ Comment:Testing performed by : [address] [address] RBC 4.69 4.30 - 5.80 M/cumm JESÚS GUTIERREZ Comment:Testing performed by : [address] [address] MCV 86.8 81.3 - 96.4 fL JESÚS GUTIERREZ Comment:Testing performed by : [address] [address] MCH 30.7 27.1 - 33.3 pg JESÚS GUTIERREZ Comment:Testing performed by : [address] [address] MCHC 35.4 32.3 - 35.7 g/dL JESÚS GUTIERREZ Comment:Testing performed by : [address] [address] RDW CV 12.9 11.1 - 14.9 % JESÚS GUTIERREZ Comment:Testing performed by : [address] [address] RDW SD 40.3 35.7 - 48.1 fL JESÚS GUTIERREZ Comment:Testing performed by : [address] [address] NRBC abs 0.00 0.00 - 0.01 K/cumm JESÚS GUTIERREZ Comment:Testing performed by : [address], [address] Blood 05/31/2024 5:18 PM CDT 05/31/2024 5:24 PM CDT Myla Meng MD LAB BLOOD ORDERABLES Final Result Performing Organization Address City/[facility] de Phone Number [facility] [address] [facility] Department of Laboratories [place], [place] [id number] * Ethanol (05/31/2024 5:18 PM CDT) Ethanol <10 <=10 mg/dL Comment: Interpretive Data Legal limit of intoxication > or = 80 mg/dL Levels > or = 400 mg/dL are potentially TOXIC. Current interpretive data was last revised on 2018. Testing performed by: [address] [address] Blood 05/31/2024 5:18 PM CDT 05/31/2024 5:34 PM CDT Myla Meng MD LAB BLOOD ORDERABLES Final Result Performing Organization Address City/[facility] Co de Phone Number JESÚS [address] [facility] Department [place] [address] * (ABNORMAL) Comprehensive metabolic panel (05/31/2024 5:18 PM CDT) Sodium 127(L) 135 - 145 mmol/L Comment:Testing performed by : [address] [address] Potassium, pl 3.0(L) 3.3 - 4.9 mmol/L JESÚS Comment:Testing performed by : [address] [address] Chloride 88(L) 97 - 110 mmol/L JESÚS Comment:Testing performed by : [address] [address] CO2 24 22 - 32 mmol/L JESÚS Comment:Testing performed by : [address] [address] Anion gap 15 2 - 15 mmol/L JESÚS Comment:Testing performed by : [address] [address] BUN 21 6 - 25 mg/dL JESÚS Comment:Testing performed by : [address] [address] Creatinine 1.46(H) 0.80 - 1.30 mg/dL JESÚS Comment:Testing performed by : [address] [address] Glucose 125 70 - 199 mg/dL JESÚS Comment: Interpretive Data Fasting glucose >/= 126 mg/dl is diagnostic for diabetes. Fasting is defined as no caloric intake for at least 8 hours. Fasting glucose between 100 mg/dl to 125 mg/dl is diagnostic of prediabetes. In a patient with classic symptoms of hyperglycemia or hyperglycemic crisis, a random glucose >/= 200 mg/dl is diagnostic for diabetes. In the absence of unequivocal hyperglycemia, results should be confirmed by repeat testing. The classification and Diagnosis of Diabetes Diabetes Care 2021; 46: S19-S40. Current interpretive data was last revised 2022. Testing performed by: [address] [address] Calcium 9.7 8.5 - 10.3 mg/dL JESÚS Comment:Testing performed by : [address] [address] Bilirubin, total 0.8 0.1 - 1.2 mg/dL JESÚS Comment:Testing performed by : [address] [address] Protein, pl 7.6 6.5 - 8.5 g/dL JESÚS Comment:Testing performed by : [address] [address] Albumin 4.0 3.5 - 5.0 g/dL JESÚS Comment:Testing performed by : [address] [address] Alk phos 167(H) 40 - 130 Units/L JESÚS Comment:Testing performed by : [address] [address] ALT 51 7 - 55 Units/L JESÚS Comment:Testing performed by : [address] [address] AST 31 10 - 50 Units/L JESÚS Comment:Testing performed by : [address] [address] Blood 05/31/2024 5:18 PM CDT 05/31/2024 5:24 PM CDT Myla Meng MD LAB BLOOD ORDERABLES Final Result Performing Organization Address City/State/[facility] Co de Phone Number [facility] [address] [facility] Department [place] [address] from Last 3 Months Insurance [employer] MEDICARE PPO Care Teams [employer] Protection Maintainer Relationship Specialty Start Date End Date Lazarus Dewey NP [address] [place] [address] PCP - General Nurse Practitioner 05/31/24
--- OUTSIDE RECORDS SUMMARY | 2024-06-10 17:13 | XMS_ITS | Clinical Summary ---
Author Organization [facility] Address [address] [place] [id number] Care Team Providers Care Machine Striper Name Role Phone Lazarus Dewey NP Primary Care Provider [phone] Allergies Active Allergy Reactions Criticality Noted Date Comments Codeine Rash Medium 05/31/2024 Encounters Date Type Department Care Team Description 05/31/2024 5:11 PM CDT - 05/31/2024 9:[address] [facility] Emergency Department [address] [place] [id number] Myla Meng MD Scarbrough, Maria L., MD Fall, initial encounter (Primary Dx); Hypotension, unspecified hypotension type; Hypokalemia; Hyponatremia Discharge Disposition: Discharge to home or self care from Last 3 Months Social History Tobacco Use Types Packs/Day Years Used Date Smoking Tobacco: Never Assessed Personal Safety Answer Date Recorded Have you ever been in or are you currently in a harmful physical or emotional relationship or is someone making you feel afraid or unsafe? 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 Gender Identity Not on file Sexual Orientation [...] Mass Index - - Plan of Treatment Health Maintenance Due Date Last Done Comments Colon Cancer Screening-Colonoscopy 1955 Depression Screening 1955 Fall Risk Assessment 1955 Hepatitis C Screening 1955 Prostate Cancer Screening-PSA 1955 DTaP/Tdap/Td Vaccine (1 - Tdap) 06/29/1966 Hepatitis B Screening 06/29/1973 Pneumococcal vaccine 65+ (1 of 1 - PCV) 06/29/2005 Zoster Vaccine (1 of 2) 06/29/2005 Abdominal Aortic Aneurysm (AAA) Screen 06/29/2020 Well Visit 65+ 06/29/2020 Influenza Vaccine (Season Ended) 2024 Procedures Procedure Name Priority Date/Time Associated Diagnosis [...] high-sensitivity 4-hour (05/31/2024 9:26 PM CDT) Pathologist [facility] Trop T hs 9 <=22 ng/L Comment: Interpretive Data For further hscTnT resources including the diagnostic algorithm and an aid in interpretation, copy and paste this link: https://nrl.testcatalog.org/show/hsTrop Current Interpretive Data last revised 2020. Testing performed by: [address] [address] Trop T hs delta -3 ng/L JESÚS GUTIERREZ Comment:Testing performed by : [address] [address] Trop T hs interp Insignificant JESÚS GUTIERREZ Comment:Testing performed by : [address] [address] Blood 05/31/2024 9:26 PM CDT 05/31/2024 9:34 PM CDT Mlya Meng MD LAB BLOOD ORDERABLES Final Result JESÚS GUTIERREZ [address] [facility] [place] [address] * Sepsis Lactate w/ Reflex (05/31/2024 9:26 PM CDT) [facility] Sepsis Lactate 1.5 0.7 - 2.0 mmol/L Comment:Testing performed by : [address] [address] Blood 05/31/2024 9:26 PM CDT 05/31/2024 9:34 PM CDT Glenda DELCID LAB BLOOD ORDERABLES Mralene l Result JESÚS [address] [facility] [place] [address] * (ABNORMAL) Urinalysis reflex to microscopic and culture Urine (05/31/2024 7:19 PM CDT) Color, ur Yellow Yellow Comment:Testing performed by : [address] [address] Clarity, ur Cloudy(A) Clear JESÚS Comment:Testing performed by : [address] [address] Specific gravity, ur 1.009 1.003 - 1.030 JESÚS Comment:Testing performed by : [address] [address] pH, urine 5.5 JESÚS Comment: Interpretive Data U rine pH is affected by diet, medications, systemic acid-base disturbances, and renal tubular function. pH may affect urinary stone formation. For example, urine pH below 6.0 may help reduce the tendency for calcium phosphate stones and pH greater than 6.0 may reduce the tendency for uric acid stone formation. Source: [facility] Current Interpretive Data was last revised on 2017 Testing performed by: [address] [address] Protein, ur ql Negative Negative JESÚS GUTIERREZ Comment:Testing performed by : [address] [address] Glucose, ur ql Negative Negative JESÚS GUTIERREZ Comment:Testing performed by : [address] [address] Ketones, ur Negative Negative JESÚS GUTIERREZ Comment:Testing performed by : [address] [address] Bilirubin, ur Negative Negative JESÚS GUTIERREZ Comment:Testing performed by : [facility], [address] [place] [address], [place]., [address] Blood, ur Negative Negative JESÚS GUTIERREZ Comment:Testing performed by : [facility], [address] [place] [address], [place]., [address] Urobilinogen, ur 2.0(A) <2.0 mg/dL JESÚS GUTIERREZ Comment:Testing performed by : [address], [place]., [address] Nitrite, ur Negative Negative JESÚS Comment:Testing performed by : [address], [place]., [address] Leukocyte esterase, ur Negative Negative JESÚS Comment:Testing performed by : [address], [place]., [address] UA reflex comment Reflex conditions for microscopic UA and culture not met. JESÚS Comment:Testing performed by : [address], [place]., [address] Urine 05/31/2024 7:19 PM CDT 05/31/2024 7:25 PM CDT Myla Meng MD LAB MICROBIOLOGY - GENERAL ORDERABLES Final Result EJSÚS [facility] Department of Laboratories [place], [place] [id number] * Blood culture Blood Peripheral (05/31/2024 6:54 PM CDT) Report Final Report: No growth Comment:Testing performed by : [facility], [address] [facility], [place]., [address] Blood (Peripheral) 05/31/2024 6:54 PM CDT 05/31/2024 [...] performance characteristics have been verified by the [facility] Microbiology Laboratory. For questions about this culture, contact the Microbiology Laboratory at [phone]. Interpretive data was last revised on 23. Myla Meng MD LAB MICROBIOLOGY - GENERAL ORDERABLES Final Result JESÚS [address] [facility] [place] [address] * Blood culture Blood Peripheral (05/31/2024 6:53 PM CDT) [facility] Signature Report Final Report: No growth Comment:Testing performed by : [facility], [address] [place]., [address] Blood (Peripheral) 05/31/2024 6:53 PM CDT 05/31/2024 9:31 PM CDT [facility] JESÚS [facility] 06/05/2024 7:00 AM CDT Draw Blood cultures [...] performance characteristics have been verified by the [facility] Microbiology Laboratory. For questions about this culture, contact the Microbiology Laboratory at [phone]. Interpretive data was last revised on 23. us Myla Meng MD LAB MICROBIOLOGY - GENERAL ORDERABLES Final Result JESÚS [address] [facility] [place] [address] * CT Cervical Spine WO Contrast (05/31/2024 [...] Cornell Maya M.D. KH: SAHARA Report ID: [id number] Reading Location: [place] [address] Procedure Note Cornell Maya MD - 05/31/2024 [...] 6:44 PM - Electronically signed by Cornell Zulma SHOEMAKER: SAHARA Report ID: [id number] Reading Location: [id number] Myla Meng MD IM CT PROCEDURES Final Res ult * CT [...] signed by Cornell SHOEMAKER: SAHARA Report ID: [id number] Reading Location: [id number] Procedure Note Cornell Maya MD - 05/31/2024 [...] Cornell Maya M.D. KH: SAHARA Report ID: [id number] Reading Location: [id number] Myla Meng MD IMG CT PROCEDURES Final [...] signed by Cornell SHOEMAKER: SAHARA Report ID: [id number] Reading Location: [place] [address] Procedure Note Cornell Maya MD - 05/31/2024 [...] signed by Cornell SHOEMAKER: SAHARA Report ID: [id number] Reading Location: [id number] Myla Meng MD IMG XR PROCEDURES Final Res ult * ECG 12 lead (05/31/2024 5:19 PM CDT) Ventricular Rate EKG/Min 102 BPM [facility] Atrial Rate 102 BPM [facility] SD-Interval (MSEC) 154 ms [facility] QRS-Interval (MSEC) 80 ms [facility] QT-Interval (MSEC) 356 ms [facility] QTc 463 ms [facility] P [place] 49 degrees [facility] R [place] 103 degrees [facility] T [place] 73 degrees [facility] Diagnosis Sinus tachycardia Rightward axis Anterior infarct , age undetermined Abnormal ECG No previous ECGs available Confirmed by MARY MCGEE M.D. ([id number]) on 06/01/2024 10:55:01 PM [facility] 05/31/2024 5:19 PM CDT 06/01/2024 10:55 PM CDT us Myla Meng MD ECG ORDERABLES Final Resul t Performing Organization Address City/[facility]/ZIP Co de Phone Number [facility] * Troponin T high-sensitivity series (baseline, 2hr, 4hr, 6hr) (05/31/2024 5:18 PM CDT) [facility] Trop T hs 12 <=22 ng/L Comment: Interpretive Data For further hscTnT resources including the diagnostic algorithm and an aid in interpretation, copy and paste this link: https://nrl.testcatalog.org/show/hsTrop Current Interpretive Data last revised 2020. Testing performed by: [facility], [address] [place] [address]., [address] Blood 05/31/2024 5:18 PM CDT 05/31/2024 5:24 PM CDT us Myla Meng MD LAB BLOOD ORDERABLES Final Result JESÚS [address] [facility] [place] [address] * (ABNORMAL) Sepsis Lactate w/ Reflex (05/31/2024 5:18 PM CDT) [facility] Sepsis Lactate 2.9(H) 0.7 - 2.0 mmol/L Comment:Testing performed by : [facility], [address] [place] [address]., [address] Blood 05/31/2024 5:18 PM CDT 05/31/2024 5:24 PM CDT us Glenda DELCID LAB BLOOD ORDERABLES Marlene l Result Performing Organization Address City/[facility]/ZIP Co de Phone Number JESÚS [address] [place] [address] * (ABNORMAL) eGFR (05/31/2024 5:18 PM CDT) [...] was last reviewed 2021. Testing performed by: [facility], [address] [place] [address]., [address] Blood 05/31/2024 5:18 PM CDT 05/31/2024 5:24 PM CDT us Myla Meng MD LAB BLOOD ORDERABLES Final Result Performing Organization Address City/[facility]/ZIP Co de Phone Number [place] [id number] [facility] [employer] [place] [address] * (ABNORMAL) Differential, auto (05/31/2024 5:18 PM CDT) Neutrophil abs 7.7(H) 1.5 - 6.5 K/cumm Comment:Testing performed by : [address] [address] Imm gran abs 0.1 0.0 - 0.1 K/cumm JESÚS Comment:Testing performed by : [address] [address] Lymphocyte abs 0.4(L) 0.8 - 3.3 K/cumm JESÚS Comment:Testing performed by : [address] [address] Monocyte abs 1.2(H) 0.2 - 0.8 K/cumm [facility] Comment:Testing performed by : [address] [address] Eosinophil abs 0.1 0.0 - 0.5 K/cumm JESÚS Comment:Testing performed by : [address] [address] Basophil abs 0.0 0.0 - 0.1 K/cumm [facility] Comment:Testing performed by : [address] [address] Neutrophil pct 80.9 % [facility] Comment: Interpretive Data Percent cell count reference ranges are not reported, since discordance with absolute values may lead to misinterpretation of CBC data. Current Interpretive Data was last revised on 2017. Testing performed by: [address] [address] Imm gran pct 0.5 % [facility] Comment: Interpretive Data Percent cell count reference ranges are not reported, since discordance with absolute values may lead to misinterpretation of CBC data. Current Interpretive Data was last revised on 2017. Testing performed by: [address] [address] Lymphocyte pct 4.2 % [facility] Comment: Interpretive Data Percent cell count reference ranges are not reported, since discordance with absolute values may lead to misinterpretation of CBC data. Current Interpretive Data was last revised on 2017. Testing performed by: [address] [address] Monocyte pct 13.0 % JESÚS Comment: Interpretive Data Percent cell count reference ranges are not reported, since discordance with absolute values may lead to misinterpretation of CBC data. Current Interpretive Data was last revised on 2017. Testing performed by: [address] [address] Eosinophil pct 1.2 % JESÚS Comment: Interpretive Data Percent cell count reference ranges are not reported, since discordance with absolute values may lead to misinterpretation of CBC data. Current Interpretive Data was last revised on 2017. Testing performed by: [address] [address] Basophil pct 0.2 % JESÚS Comment: Interpretive Data Percent cell count reference ranges are not reported, since discordance with absolute values may lead to misinterpretation of CBC data. Current Interpretive Data was last revised on 2017. Testing performed by: [address] [address] Blood 05/31/2024 5:18 PM CDT 05/31/2024 5:24 PM CDT Myla Meng MD LAB BLOOD ORDERABLES Final Result [facility] [address] [facility] [place] [address] * (ABNORMAL) CBC with auto differential (05/31/2024 5:18 PM CDT) Pathologist [facility] WBC 9.5 3.8 - 9.9 K/cumm Comment:Testing performed by : [address] [address] Hgb 14.4 13.0 - 17.5 g/dL JESÚS GUTIERREZ Comment:Testing performed by : [address] [address] Hct 40.7 38.9 - 50.3 % JESÚS Comment:Testing performed by : [address] [address] Plt 146(L) 150 - 400 K/cumm JESÚS Comment:Testing performed by : [address] [address] MPV 9.8 9.1 - 12.3 fL JESÚS Comment:Testing performed by : [address] [address] RBC 4.69 4.30 - 5.80 M/cumm JESÚS Comment:Testing performed by : [address] [address] MCV 86.8 81.3 - 96.4 fL JESÚS Comment:Testing performed by : [address] [address] MCH 30.7 27.1 - 33.3 pg JESÚS Comment:Testing performed by : [address] [address] MCHC 35.4 32.3 - 35.7 g/dL JESÚS Comment:Testing performed by : [address], [address] RDW CV 12.9 11.1 - 14.9 % JESÚS Comment:Testing performed by : [address], [address] RDW SD 40.3 35.7 - 48.1 fL JESÚS Comment:Testing performed by : [address] [address] NRBC abs 0.00 0.00 - 0.01 K/cumm JESÚS Comment:Testing performed by : [address] [address] Blood 05/31/2024 5:18 PM CDT 05/31/2024 5:24 PM CDT Myla Meng MD LAB BLOOD ORDERABLES Final Result JESÚS [address] [facility] [place] [address] * Ethanol (05/31/2024 5:18 PM CDT) Ethanol <10 <=10 mg/dL Comment: Interpretive Data Legal limit of intoxication > or = 80 mg/dL Levels > or = 400 mg/dL are potentially TOXIC. Current interpretive data was last revised on 2018. Testing performed by: [address] [address] Blood 05/31/2024 5:18 PM CDT 05/31/2024 5:34 PM CDT Myla Meng MD LAB BLOOD ORDERABLES Final Result [facility] [address] [facility] [place] [address] * (ABNORMAL) Comprehensive metabolic panel (05/31/2024 5:18 PM CDT) Pathologist [facility] Sodium 127(L) 135 - 145 mmol/L Comment:Testing performed by : [address] [address] Potassium, pl 3.0(L) 3.3 - 4.9 mmol/L JESÚS Comment:Testing performed by : [address] [address] Chloride 88(L) 97 - 110 mmol/L JESÚS Comment:Testing performed by : [address] [address] CO2 24 22 - 32 mmol/L JESÚS Comment:Testing performed by : [address] [address] Anion gap 15 2 - 15 mmol/L JESÚS Comment:Testing performed by : [address] [address] BUN 21 6 - 25 mg/dL JESÚS Comment:Testing performed by : [address] [address] Creatinine 1.46(H) 0.80 - 1.30 mg/dL JESÚS Comment:Testing performed by : [address] [address] Glucose 125 70 - 199 mg/dL JESÚS [...] was last revised 2022. Testing performed by: [address] [address] Calcium 9.7 8.5 - 10.3 mg/dL JESÚS Comment:Testing performed by : [address] [address] Bilirubin, total 0.8 0.1 - 1.2 mg/dL JESÚS Comment:Testing performed by : [address] [address] Protein, pl 7.6 6.5 - 8.5 g/dL JESÚS Comment:Testing performed by : [address] [address] Albumin 4.0 3.5 - 5.0 g/dL JESÚS Comment:Testing performed by : [address] [address] Alk phos 167(H) 40 - 130 Units/L JESÚS Comment:Testing performed by : [address] [address] ALT 51 7 - 55 Units/L JESÚS Comment:Testing performed by : [address] [address] AST 31 10 - 50 Units/L JESÚS Comment:Testing performed by : [address] [address] Blood 05/31/2024 5:18 PM CDT 05/31/2024 5:24 PM CDT Myla Meng MD LAB BLOOD ORDERABLES Final Result JESÚS MH [address] [facility] [place] [address] from Last 3 Months Insurance [employer] MEDICARE PPO Care Teams Machine Striper Relationship Specialty Start Date End Date Lazarus Dewey NP [address] [place] [address] PCP - General Nurse Practitioner 05/31/24
--- OUTSIDE RECORDS SUMMARY | 2024-06-10 17:13 | XMS_ITS | CONTINUITY OF CARE DOCUMENT ---
Author Name katherine murphy Address Unknown Organization [facility] Office Address [address] [place] [address] [address] [place] [address] Phone [phone] Care Team Providers Care Pen Rider Name Role Phone katherine murphy Unavailable Unavailable RESULTS Date Observation Value Provider Reference Range Interpretation Location Estimated Glomerular Filtration Rate (calc) >60 [facility] protein, total, serum 7.3 g/dL [facility] albumin, serum 3.9 g/dL [facility] bilirubin, serum, total 0.6 mg/dL [facility] alkaline phosphatase, serum 75 1/L [facility] alanine aminotransferase (SGPT), serum 37 1/L [facility] aspartate aminotransferase (SGOT), serum 30 1/L [facility] calcium, serum 9.4 mg/dL [facility] blood glucose, fasting 115 mg/dL [facility] creatinine, serum 0.80 mg/dL [facility] urea nitrogen, blood 11 mg/dL [facility] carbon dioxide, serum, total 32 mmol/L [facility] chloride, serum 104 mmol/L [facility] potassium, serum 3.8 mmol/L [facility] sodium, serum 145 mmol/L [facility] platelet count 234 10*3/uL [facility] red blood cell distribution width 13.9 % [facility] mean corpuscular hemoglobin concentration, RBC 33.6 g/dL [facility] mean corpuscular hemoglobin, RBC 27.8 pg [facility] mean corpuscular volume, RBC 82.5 fL [facility] hematocrit, blood 41.4 % Lesa Deleon hemoglobin, blood 13.9 g/dL eLsa Deleon erythrocyte (RBC) count 5.02 10*6/mm3 [facility] monocyte count, blood 0.3 10*3/mm3 [facility] lymphocyte count, blood 1.1 10*3/mm3 Lesa Deleon monocytes as percent of blood leukocytes 4.3 % Lesa Deleon lymphocytes as percent of blood leukocytes 16.9 % Lesa Deleon leukocyte count, blood 6.6 10*3/mm3 Lesa Deleon
--- OUTSIDE RECORDS SUMMARY | 2024-06-10 17:13 | XMS_ITS | Clinical Summary ---
Author Organization [facility] Address [address] [place] [address] Care Team Providers Care External Relations Manager Name Role Phone Juvencio Mccormick MD Unavailable [phone] Allergies Active Allergy Reactions Criticality Noted [...] nonorganic origin 2012 Hypertension 04/24/2012 Rheumatoid arthritis ([facility]) 3 Chest pain in adult Fatigue [...] Vaccine (1 - 2023-2 5 season) 2023 RSV Immunization or 60+ Years (1 [...] age to complete this topic Care Teams External Relations Manager Relationship Specialty Start Date End Date Juvencio Mccormick MD [address] [facility] [address] [place] [phone] [employer] Work[employer] CARDIOVASCULAR DISEASE 08/26/18
== END 2024-06-10 16:57 | disposition home or self-care (01) ==
PROVIDERS: PCP Nurse Practitioner; Visit Provider Internal Medicine
DX: E04.1 Nontoxic single thyroid nodule (principal); R79.89 Other specified abnormal findings of blood chemistry
CPT/HCPCS: 76536

== ENCOUNTER 2025-01-14 09:38 | Outpatient (CLI) | payer MEDICARE, SELFPAY ==
--- NOTE | ~2025-01-14 | MR_ITS ---
EXAM/PROCEDURE: MR shoulder LT wo con HISTORY: S49.92XA - Unspecified injury of left shoulder and upper ... COMPARISON: None available. TECHNIQUE: Noncontrast enhanced multiplanar left shoulder MRI performed. FINDINGS: No fracture subluxation or dislocation. 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 Trace amount of fluid in the subacromial bursa and mild spurring along the inferior margin and more bulky spurring along the superior margin of the AC joint. No obvious labral tear on this non arthrographic series. Thickened appearance of the distal supraspinatus tendon along the distal margin of the subacromial space, and to the insertion with small linear hyperintense focus in the infraspinatus tendon seen on image 13 series 8 and on image 15 series 7. Spinoglenoid recess and suprascapular notch regions appear normal. Long head of the biceps tendon is intact within the bicipital groove. Superior labral attachment appears intact. Trace amount of fluid within the tendon sheath could be associated with tenosynovitis or possible rotator cuff tear. No discrete full-thickness tear or retracted tear seen. IMPRESSION: Small longitudinal tear in the infraspinatus tendon and probable tiny partial- thickness tear in the supraspinatus tendon. No discrete full-thickness or retracted rotator cuff tear. Moderately advanced degenerative changes at the glenohumeral joint and AC joint and other findings as discussed above. Reviewed, dictated and finalized at location A. [employer] IMPRESSION: Small longitudinal tear in the infraspinatus tendon and probable tiny partial-t hickness tear in the supraspinatus tendon. No discrete full-thickness or retrac meli rotator cuff tear. Moderately advanced degenerative changes at the glenohum eral joint and AC joint and other findings as discussed above.
== END 2025-01-14 09:39 | disposition home or self-care (01) ==
LOC: MICIMG 09:39
PROVIDERS: PCP Nurse Practitioner; Visit Provider Orthopaedic Surgery
DX: S46.012A Strain of muscle(s) and tendon(s) of the rotator cuff of left shoulder, initial encounter (principal); M19.012 Primary osteoarthritis, left shoulder; X58.XXXA Exposure to other specified factors, initial encounter
CPT/HCPCS: 73221